=== PATIENT | female | born 1960 | race Two or more races ===

== ENCOUNTER → 2018-03-02 | Outpatient (CLI) | payer BC ==
--- NOTE | 2018-03-02 09:42 | MM ---
Reason for exam: screening (asymptomatic). Baseline mammogram. History: Patient is postmenopausal and is nulliparous. Physical Findings: Nurse did not find any significant physical abnormalities on exam. MG 3D Screening Mammo W/Cad Bilateral CC and MLO view(s) were taken. The breast tissue is heterogeneously dense. This may lower the sensitivity of mammography. There is no discrete abnormality. These results were verbally communicated with the patient and result sheet given to the patient on 03/02/18. ASSESSMENT: Negative, BI-RAD 1 RECOMMENDATION: Routine screening mammogram of both breasts in 1 year.
== END | disposition home or self-care (01) ==
LOC: RADMAMWWP 08:26
PROVIDERS: ATTEND Family Medicine
DX: Z12.31 Encounter for screening mammogram for malignant neoplasm of breast (principal)
CPT/HCPCS: 77063; 77067

== ENCOUNTER → 2019-02-01 | Day surgery (SDC) | payer BC ==
[2019-01-25 11:15] VITALS: BMI 24.7
[~2019-02-01] MED LIST: LACTATED RINGERS 1,000 ML IV SCH; LIDOCAINE 1% 20 ML VIAL (10MG/ML) FOR IV START INTRADERMA PRN; LIDOCAINE 1% INJ 10MG/ML (20 ML MDV) ONE; PROPOFOL 10 MG/ML 20 ML VIAL IV ONE
[2019-02-01 10:13] VITALS: TEMP 97.6
--- NOTE | 2019-02-01 10:26 | P.GSHP ---
History of Present Illness H&P Date: 02/01/19 Chief Complaint: Abdominal pain, screening Patient today for upper and lower endoscopy. Last upper endoscopy 05/31, last colonoscopy 2011. Patient had a polyp that was non-adenomatous. Otherwise doing fairly well. Some upper abdominal pain at times. No dysphagia. No sig nificant heartburn. Past Medical History Past Medical History: GERD/Reflux History of Any Multi-Drug Resistant Organisms: None Reported Additional Past Surgical History / Comment(s): COLONOSCOPY Past Anesthesia/Blood Transfusion Reactions: No Reported Reaction Smoking Status: Never smoker - Past Family History Father Family Medical History: Cancer Medications and Allergies Home Medications Medication Instructions Recorded Confirmed Type Omeprazole [PriLOSEC] 20 mg PO DAILY 01/25/19 02/01/19 History Allergies Allergy/AdvReac Type Severity Reaction Status Date / Time adhesive tape Allergy Rash/Hives Verified 01/25/19 11:15 Surgical - Exam Vital Signs Temp Pulse Resp BP Pulse Ox 97.6 F 77 16 117/74 95 02/01/19 10:11 02/01/19 10:11 02/01/19 10:11 02/01/19 10:11 02/01/19 10:11 Physical exam: General: Well-developed, well-nourished HEENT: Normocephalic, sclerae nonicteric Abdomen: Nontender, nondistended Extremities: No edema Neuro: Alert and oriented Assessment and Plan (1) Colon cancer screening Narrative/Plan: Will proceed with upper and lower endoscopy at this time. Current Visit: Yes Status: Acute Code(s): Z12.11 - ENCOUNTER FOR SCREENING FOR MALIGNANT NEOPLASM OF COLON SNOMED Code(s): 197635555
--- NOTE | 2019-02-01 10:45 | P.PCN ---
Date of Procedure: 02/01/19 Procedure(s) Performed: PREOPERATIVE DIAGNOSIS: Abdominal pain, colon cancer screening POSTOPERATIVE DIAGNOSIS: Minimal gastritis, small rectal polyp PROCEDURE: 1. EGD with biopsy 2. Colonoscopy with biopsy ANESTHESIA: MAC SURGEON: Felipe Moon M.D. SPECIMENS: Antrum, small rectal polyp ENDOSCOPIC PROCEDURE: The patient was on the endoscopy table in the left decubitus position. The Olympus gastroscope was inserted into the oropharynx and passed under direct visualization to the region of the third portion of the duodenum. From that point the scope was slowly withdrawn inspecting all surfaces carefully. There were no neoplastic inflammatory or polypoid lesions throughout the duodenum. The pylorus was widely patent. The stomach was carefully inspected. There was minimal gastritis present. A biopsy of the antrum took place to rule out H. pylori. Retroflexion revealed a normal hiatus. The esophagus was then carefully examined. There were no neoplastic inflammatory or polypoid lesions throughout the visualized esophagus. The patient was kept on the endoscopy table in the left decubitus position. The Olympus colonoscope was inserted into the anus and passed under direct visualization to the base of the cecum. The appendiceal orifice was visualized. From that point the scope was slowly withdrawn inspecting all surfaces carefully. There were no neoplastic inflammatory or polypoid lesions throughout the cecum, ascending, transverse, descending, and sigmoid colon. In the rectum there was noted be a small polyp that was removed using the cold biopsy forceps. The remainder of the rectum appeared normal. There was no visible diverticulosis. s. Digital rectal examination was normal. The patient was taken to the recovery room in stable condition per anesthesia guidelines. RECOMMENDATIONS: Await biopsy results.
[2019-02-01 11:04] VITALS: BP 121/84; PULSE 82; RESP 16
== END | disposition home or self-care (01) ==
LOC: ORWHC2ENDO 09:34
PROVIDERS: ATTEND Surgery
DX: Z12.11 Encounter for screening for malignant neoplasm of colon (principal); K29.50 Unspecified chronic gastritis without bleeding; K21.9 Gastro-esophageal reflux disease without esophagitis; Z86.010 Personal history of colon polyps; Z79.899 Other long term (current) drug therapy; Z88.8 Allergy status to other drugs, medicaments and biological substances; K62.1 Rectal polyp
CPT/HCPCS: 88305; 45380; 43239; J2001; J2704

== ENCOUNTER → 2019-03-10 | Outpatient (CLI) | payer BC ==
--- NOTE | 2019-03-14 07:33 | MM ---
Reason for exam: screening (asymptomatic). Last mammogram was performed 1 year ago. History: Patient is postmenopausal and is nulliparous. Physical Findings: A clinical breast exam by your physician is recommended on an annual basis and results should be correlated with mammographic findings. MG 3D Screening Mammo W/Cad Bilateral CC and MLO view(s) were taken. Prior study comparison: March 02, 2018, bilateral MG 3d screening mammo w/cad. The breast tissue is extremely dense which could obscure a lesion on mammography. No suspicious abnormality. No significant changes when compared with prior studies. ASSESSMENT: Negative, BI-RAD 1 RECOMMENDATION: Routine screening mammogram of both breasts in 1 year.
== END | disposition home or self-care (01) ==
LOC: RADMAMWWP 07:10
PROVIDERS: ATTEND Family Medicine
DX: Z12.31 Encounter for screening mammogram for malignant neoplasm of breast (principal)
CPT/HCPCS: 77063; 77067

== ENCOUNTER → 2021-09-13 | Outpatient (CLI) | payer MEDICAID ==
[2021-09-13 12:13] LABS: Basophils # (A) 0.03 X 10*3/uL (0.00-0.10); Basophils % (A) 0.5 %; Eosinophils # (A) 0.09 X 10*3/uL (0.04-0.35); Eosinophils % (A) 1.5 %; HCT 39.2 % (37.2-46.3); HGB 12.7 g/dL (12.0-15.0); Lymphocytes # (A) 2.16 X 10*3/uL (0.90-5.00); Lymphocytes % (A) 36.3 %; MCH 30.9 pg (27.0-32.0); MCHC 32.4 g/dL (32.0-37.0); MCV 95.4 fL (80.0-97.0); Mean Platelet Volume 9.4 fL (9.5-12.2); Monocytes # (A) 0.48 X 10*3/uL (0.20-1.00); Monocytes % (A) 8.1 %; Neutrophils # (A) 3.18 X 10*3/uL (1.80-7.70); Neutrophils % (A) 53.4 %; Platelet Count 269 X 10*3/uL (140-440); RBC 4.11 X 10*6/uL (4.10-5.20); RDW 12.1 % (11.5-14.5); WBC 5.95 X 10*3/uL (4.50-10.00)
[2021-09-13 13:21] LABS: African American GFR (CKD) 110.7 (60.0-200.0); Albumin 4.2 g/dL (3.8-4.9); Albumin/Globulin Ratio 1.77 (1.60-3.17); Anion Gap 11.9 mmol/L (4.00-12.00); BUN/Creat Ratio 19.68 Ratio (12.00-20.00); Blood Urea Nitrogen 13.5 mg/dL (9.0-27.0); Calcium 9.2 mg/dL (8.7-10.3); Carbon Dioxide 25.2 mmol/L (21.6-31.8); Chol/HDL Ratio 3.11 Ratio; Globulin 2.4 g/dL (1.6-3.3); HDL Cholesterol 60.5 mg/dL (40.00-60.00); Non-African American GFR(CKD) 95.5 (60.0-200.0); T4, Free (Free Thyroxine) 1.24 ng/dL (0.800-1.800); Total Bilirubin 0.4 mg/dL (0.30-1.20); Total Protein 6.6 g/dL (6.2-8.2)
[2021-09-13 13:33] LABS: Triglycerides 48.3 mg/dL (0.00-149.00)
== END | disposition home or self-care (01) ==
LOC: LABWHC1 08:23
PROVIDERS: ATTEND Nurse Practitioner Adult Health
DX: Z00.00 Encounter for general adult medical examination without abnormal findings (principal); G44.209 Tension-type headache, unspecified, not intractable; Z83.49 Family history of other endocrine, nutritional and metabolic diseases; W88.1XXS Exposure to radioactive isotopes, sequela
CPT/HCPCS: 36415; 80053; 80061; 84439; 84443; 85025

== ENCOUNTER 2021-10-02 11:18 | Inpatient (IN) | payer MEDICAID ==
--- NOTE | 2021-10-02 13:16 | ED ---
General Adult HPI - General Chief complaint: Dizziness Stated complaint: High BP/Dizziness Time Seen by Provider: 10/02/21 12:20 Source: patient, family, RN notes reviewed, old records reviewed Mode of arrival: wheelchair Limitations: no limitations - History of Present Illness Initial comments: This a 60-year-old female who presents emergency department stating that she has been dizzy today and when she had her blood pressure taken on the floor she had an elevated blood pressure. She was told to come to the emergency department to be evaluated. Patient states in the recent week she has been having a slightly elevated blood pressure and her primary medical care doctor did not want steroid medication but did want to monitor it. Patient also states had a headache and a little bit of blurred vision. Patient states the headache is ongoing for 1 month. Patient states the lightheadedness is more of an off-balance and it is a near syncopal episode. Patient has chest tightness. Patient denies any difficulty breathing shortness of breath. Patient denies any recent fever chills or cough. Patient denies any abdominal pain patient denies nausea vomiting. - Related Data Home Medications Medication Instructions Recorded Confirmed Aspirin EC [Ecotrin Low Dose] 81 mg PO DAILY PRN 10/02/21 10/02/21 Aspirin/Acetaminophen/Caffeine 1 tab PO Q8H PRN 10/02/21 10/02/21 [Excedrin Migraine Caplet] Allergies Allergy/AdvReac Type Severity Reaction Status Date / Time adhesive tape Allergy Rash/Hives Verified 10/02/21 13:29 Review of Systems ROS Statement: Those systems with pertinent positive or pertinent negative responses have been documented in the HPI. ROS Other: All systems not noted in ROS Statement are negative. Past Medical History Past Medical History: GERD/Reflux History of Any Multi-Drug Resistant Organisms: None Reported Additional Past Surgical History / Comment(s): COLONOSCOPY Past Anesthesia/Blood Transfusion Reactions: No Reported Reaction Past Psychological History: No Psychological Hx Reported Smoking Status: Never smoker Past Alcohol Use History: Occasional Past Drug Use History: None Reported - Past Family History Father Family Medical History: Cancer General Exam - General Exam Comments Initial Comments: GENERAL: Patient is well-developed and well-nourished. Patient is nontoxic and well- hydrated and is in mild distress. ENT: Neck is soft and supple. No significant lymphadenopathy is noted. Oropharynx is clear. Moist mucous membranes. Neck has full range of motion without eliciting any pain. EYES: The sclera were anicteric and conjunctiva were pink and moist. Extraocular movements were intact and pupils were equal round and reactive to light. Eyelids were unremarkable. PULMONARY: Unlabored respirations. Good breath sounds bilaterally. No audible rales rhonchi or wheezing was noted. CARDIOVASCULAR: There is a regular rate and rhythm without any murmurs gallops or rubs. ABDOMEN: Soft and nontender with normal bowel sounds. SKIN: Skin is clear with no lesions or rashes and otherwise unremarkable. NEUROLOGIC: Patient is alert and oriented x3. Cranial nerves II through XII are grossly intact. Motor and sensory are also intact. Normal speech, volume and content. Symmetrical smile. Cerebellar testing finger to nose was normal bilaterally MUSCULOSKELETAL: Normal extremities with adequate strength and full range of motion. LYMPHATICS: No significant lymphadenopathy is noted PSYCHIATRIC: Normal psychiatric evaluation. Limitations: no limitations Course Vital Signs 10/02/21 12:14 Temperature 98.5 F Pulse Rate 94 Respiratory 18 Rate Blood Pressure 190/104 O2 Sat by Pulse 98 Oximetry Medical Decision Making - Medical Decision Making EKG shows normal sinus rhythm at 77 bpm OK interval 158 QRS is 82 QT intervals 42 QTC is 454. Patient's EKG shows no ST segment elevation or depression. Patient's chest x-ray shows no acute abnormality. Patient had an elevated troponin. I started the patient aspirin and Nitropaste and heparin at this time. I spoke with sounds physicians a agreed to admit the patient and the patient consult cardiology. - Lab Data Result diagrams: 10/02/21 13:42 10/02/21 13:42 Lab Results 10/02/21 10/02/21 10/02/21 Range/Units 13:42 13:42 13:42 WBC 8.3 (3.8-10.6) k/uL RBC 4.43 (3.80-5.40) m/uL Hgb 13.8 (11.4-16.0) gm/dL Hct 41.7 (34.0-46.0) % MCV 94.1 (80.0-100.0) fL MCH 31.2 (25.0-35.0) pg MCHC 33.2 (31.0-37.0) g/dL RDW 11.9 (11.5-15.5) % Plt Count 288 (150-450) k/uL MPV 6.8 Neutrophils % 70 % Lymphocytes % 23 % Monocytes % 5 % Eosinophils % 1 % Basophils % 1 % Neutrophils # 5.8 (1.3-7.7) k/uL Lymphocytes # 1.9 (1.0-4.8) k/uL Monocytes # 0.4 (0-1.0) k/uL Eosinophils # 0.1 (0-0.7) k/uL Basophils # 0.0 (0-0.2) k/uL PT 10.4 (9.0-12.0) sec INR 1.0 (<1.2) APTT 24.5 (22.0-30.0) sec Sodium 140 (137-145) mmol/L Potassium 3.7 (3.5-5.1) mmol/L Chloride 106 (98-107) mmol/L Carbon Dioxide 25 (22-30) mmol/L Anion Gap 9 mmol/L BUN 15 (7-17) mg/dL Creatinine 0.61 (0.52-1.04) mg/dL Est GFR (CKD-EPI)AfAm >90 (>60 ml/min/1.73 sqM) Est GFR (CKD-EPI)NonAf >90 (>60 ml/min/1.73 sqM) Glucose 109 H (74-99) mg/dL Calcium 9.9 (8.4-10.2) mg/dL Magnesium 2.1 (1.6-2.3) mg/dL Total Bilirubin 0.5 (0.2-1.3) mg/dL AST 30 (14-36) U/L ALT 23 (4-34) U/L Alkaline Phosphatase 70 (38-126) U/L Troponin I (0.000-0.034) ng/mL Total Protein 7.7 (6.3-8.2) g/dL Albumin 4.4 (3.5-5.0) g/dL 10/02/21 Range/Units 13:42 WBC (3.8-10.6) k/uL RBC (3.80-5.40) m/uL Hgb (11.4-16.0) gm/dL Hct (34.0-46.0) % MCV (80.0-100.0) fL MCH (25.0-35.0) pg MCHC (31.0-37.0) g/dL RDW (11.5-15.5) % Plt Count (150-450) k/uL MPV Neutrophils % % Lymphocytes % % Monocytes % % Eosinophils % % Basophils % % Neutrophils # (1.3-7.7) k/uL Lymphocytes # (1.0-4.8) k/uL Monocytes # (0-1.0) k/uL Eosinophils # (0-0.7) k/uL Basophils # (0-0.2) k/uL PT (9.0-12.0) sec INR (<1.2) APTT (22.0-30.0) sec Sodium (137-145) mmol/L Potassium (3.5-5.1) mmol/L Chloride (98-107) mmol/L Carbon Dioxide (22-30) mmol/L Anion Gap mmol/L BUN (7-17) mg/dL Creatinine (0.52-1.04) mg/dL Est GFR (CKD-EPI)AfAm (>60 ml/min/1.73 sqM) Est GFR (CKD-EPI)NonAf (>60 ml/min/1.73 sqM) Glucose (74-99) mg/dL Calcium (8.4-10.2) mg/dL Magnesium (1.6-2.3) mg/dL Total Bilirubin (0.2-1.3) mg/dL AST (14-36) U/L ALT (4-34) U/L Alkaline Phosphatase (38-126) U/L Troponin I 0.176 H* (0.000-0.034) ng/mL Total Protein (6.3-8.2) g/dL Albumin (3.5-5.0) g/dL Critical Care Time Critical Care Time: Yes Total Critical Care Time: 35 Disposition Clinical Impression: Non-STEMI (non-ST elevated myocardial infarction) Disposition: ADMITTED IP TO THIS [facility] Referrals: Adair Silva MD [Primary Care Provider] - 1-2 days Time of Disposition: 15:07
[2021-10-02] MEDS ORDERED: hydrALAZINE HCL 20 MG/ML 1 ML VIAL IVP STA (13:30)
[2021-10-02 13:54] LABS: Basophils % (A) 1 %; Eosinophils # (A) 0.1 k/uL (0-0.7); Eosinophils % (A) 1 %; HCT 41.7 % (34.0-46.0); HGB 13.8 gm/dL (11.4-16.0); Lymphocytes # (A) 1.9 k/uL (1.0-4.8); Lymphocytes % (A) 23 %; MCH 31.2 pg (25.0-35.0); MCHC 33.2 g/dL (31.0-37.0); MCV 94.1 fL (80.0-100.0); Mean Platelet Volume 6.8; Monocytes # (A) 0.4 k/uL (0-1.0); Monocytes % (A) 5 %; Neutrophils # (A) 5.8 k/uL (1.3-7.7); Neutrophils % (A) 70 %; Platelet Count 288 k/uL (150-450); RBC 4.43 m/uL (3.80-5.40); RDW 11.9 % (11.5-15.5); WBC 8.3 k/uL (3.8-10.6)
[2021-10-02 14:04] LABS: Partial Thromboplastin Time 24.5 sec (22.0-30.0); Prothrombin Time 10.4 sec (9.0-12.0)
[2021-10-02 14:07] LABS: ALT 23 U/L (4-34); AST 30 U/L (14-36); African American GFR (CKD) >90 (>60 ml/min/1.73 sqM); Albumin 4.4 g/dL (3.5-5.0); Alkaline Phosphatase 70 U/L (38-126); Anion Gap 9 mmol/L; Blood Urea Nitrogen 15 mg/dL (7-17); Calcium 9.9 mg/dL (8.4-10.2); Carbon Dioxide 25 mmol/L (22-30); Chloride 106 mmol/L (98-107); Glucose 109 mg/dL (74-99); Magnesium 2.1 mg/dL (1.6-2.3); Non-African American GFR(CKD) >90 (>60 ml/min/1.73 sqM); Potassium 3.7 mmol/L (3.5-5.1); Sodium 140 mmol/L (137-145); Total Bilirubin 0.5 mg/dL (0.2-1.3); Total Protein 7.7 g/dL (6.3-8.2)
--- NOTE | 2021-10-02 14:23 | XR ---
EXAMINATION TYPE: XR chest 2V DATE OF EXAM: 10/02/2021 COMPARISON: NONE TECHNIQUE: PA and lateral views submitted. HISTORY: Chest pain FINDINGS: The lungs are clear and there is no pneumothorax, pleural effusion, or focal pneumonia. Heart size normal. Hyperinflation suggests COPD. No overt failure. Diffuse osteopenia. IMPRESSION: 1. No acute process.
--- NOTE | 2021-10-02 14:32 | CT ---
EXAMINATION TYPE: CT brain wo con DATE OF EXAM: 10/02/2021 COMPARISON: None INDICATION: HTN DLP: 1025.4 mGycm, Automated exposure control for dose reduction was used. CONTRAST: None CT of the brain is performed utilizing 3 mm thick sections through the posterior fossa and 3 mm thick sections through the remaining calvarium. Study is performed within 24 hours of arrival to the hosp [facility]. No abnormal hyperdensity is present to suggest an acute intracranial hemorrhage. No mass lesion is evident. No acute infarcts are evident. Ventricles and sulci are appropriate for the patient age. Paranasal sinuses and mastoid air cells within the [id number]-syoc are clear. IMPRESSIONS: 1. Normal CT Brain
[2021-10-02] MEDS ORDERED: MECLIZINE 12.5 MG TAB PO STA (14:47)
[2021-10-02] MEDS ORDERED: ENALAPRILAT 1.25 MG/ML 1 ML VIAL IVP STA (14:48)
[2021-10-02] MEDS ORDERED: NITROGLYCERIN OINT 1 INCH/GM PACKET TOPICAL STA ×2 (15:05)
[2021-10-02] MEDS ORDERED: ASPIRIN 81 MG PO STA ×2 (15:05)
[2021-10-02] MEDS ORDERED: HEPARIN SODIUM 1,000 UN/ML (10ML VL) IV ONE (15:06)
[2021-10-02] MEDS ORDERED: NITROGLYCERIN SL TABS 0.4 MG TAB SUBLINGUAL PRN (15:09)
[2021-10-02] MEDS ORDERED: HEPARIN SOD,PORK IN 0.45% NACL 25,000 UNIT in 0.45% NACL 1 250ML.BAG IV SCH (15:15)
--- NOTE | 2021-10-02 15:59 | P.HPIM ---
History of Present Illness H&P Date: 10/02/21 Chief Complaint: Dizziness 60-year-old female with past medical history of hypertension admitted to the hospital for dizziness and elevated blood pressure patient did have also some chest pain that currently resolved Review of systems and systems has been reviewed all negative and positive findings as per history of present illness Constitutional: No acute distress, conversant, pleasant Eyes: Anicteric sclerae, moist conjunctiva, no lid-lag PERRLA ENMT: NC/AT Oropharynx clear, no erythema, exudates Neck: Supple, FROM, no masses, or JVD No carotid bruits No thyromegaly Lungs: Clear to auscultation Clear to percussion Normal respiratory effort, no accessory muscle use Cardiovascular: Heart regular in rate and rhythm, No murmurs, gallops, or rubs No peripheral edema Abdominal: Soft Nontender, no guarding, rebound or rigidity Abdomen moving with respiration Normoactive bowel sounds No hepatomegaly, No splenomegaly No palpable mass No abdominal wall hernia noted Skin: Normal temperature, tone, texture, turgor No induration No subcutaneous nodules No rash, lesions No ulcers Extremities: No digital cyanosis No clubbing Pedal pulses intact and symmetrical Radial pulses intact and symmetrical Normal gait and station No calf tenderness Psychiatric:Alert and oriented to person, place and time Appropriate affect Intact judgement Neuro: Muscles Strength 5/5 in all 4 extremities Sensation to light touch grossly present throughout Cranial nerves II-XII grossly intact No focal sensory deficits Assessment and plan Chest pain atypical and typical features with slight elevation in troponins cardiology has been consulted On uncontrolled hypertension Observe Past Medical History Past Medical History: GERD/Reflux History of Any Multi-Drug Resistant Organisms: None Reported Additional Past Surgical History / Comment(s): COLONOSCOPY Past Anesthesia/Blood Transfusion Reactions: No Reported Reaction Past Psychological History: No Psychological Hx Reported Smoking Status: Never smoker Past Alcohol Use History: Occasional Past Drug Use History: None Reported - Past Family History Father Family Medical History: Cancer Medications and Allergies Home Medications Medication Instructions Recorded Confirmed Type Aspirin EC [Ecotrin Low Dose] 81 mg PO DAILY PRN 10/02/21 10/02/21 History Aspirin/Acetaminophen/Caffeine 1 tab PO Q8H PRN 10/02/21 10/02/21 History [Excedrin Migraine Caplet] Allergies Allergy/AdvReac Type Severity Reaction Status Date / Time adhesive tape Allergy Rash/Hives Verified 10/02/21 13:29 Physical Exam Vitals: Vital Signs Temp Pulse Resp BP Pulse Ox 10/02/21 15:38 92 18 176/90 98 10/02/21 12:14 98.5 F 94 18 190/104 98 Intake and Output 10/02/21 10/02/21 10/02/21 06:59 14:59 22:59 Other: Weight 63.049 kg Results CBC & Chem 7: 10/02/21 13:42 10/02/21 13:42 Labs: Abnormal Lab Results - Last 24 Hours (Table) 10/02/21 10/02/21 Range/Units 13:42 13:42 Glucose 109 H (74-99) mg/dL Troponin I 0.176 H* (0.000-0.034) ng/mL
[2021-10-02] MEDS ORDERED: ONDANSETRON 4 MG/2 ML VIAL IVP PRN (16:02)
[2021-10-02] MEDS ORDERED: MAG HYDROX/AL HYDROX/SIMETH 30 ML CUP PO PRN (16:02)
[2021-10-02 17:45] LABS: Creatine Kinase MB 1.7 ng/mL (0.0-2.4)
[2021-10-02] MEDS: ACETAMINOPHEN TAB 325 MG TAB PO PRN (18:15)
[2021-10-02] MEDS: NITROGLYCERIN OINT 1 INCH/GM PACKET TOPICAL SCH (18:16)
[2021-10-02 18:32] LABS: Troponin I 0.164 ng/mL (0.000-0.034)
[2021-10-02] MEDS: METOPROLOL TARTRATE 25 MG TAB PO SCH (21:10)
[2021-10-03] MEDS: NITROGLYCERIN OINT 1 INCH/GM PACKET TOPICAL SCH ×3 (00:50→22:26)
[2021-10-03] MEDS: ACETAMINOPHEN TAB 325 MG TAB PO PRN ×2 (00:50→09:09)
[2021-10-03 07:39] LABS: Basophils % (A) 0 %; Eosinophils % (A) 0 %; HCT 39.2 % (34.0-46.0); Lymphocytes # (A) 2.2 k/uL (1.0-4.8); Lymphocytes % (A) 17 %; MCH 31.3 pg (25.0-35.0); MCHC 33.2 g/dL (31.0-37.0); MCV 94.3 fL (80.0-100.0); Mean Platelet Volume 6.7; Monocytes # (A) 0.5 k/uL (0-1.0); Monocytes % (A) 4 %; Neutrophils # (A) 9.5 k/uL (1.3-7.7); Neutrophils % (A) 77 %; Platelet Count 293 k/uL (150-450); RBC 4.16 m/uL (3.80-5.40); RDW 12.2 % (11.5-15.5); WBC 12.3 k/uL (3.8-10.6)
[2021-10-03 07:52] LABS: ALT 19 U/L (4-34); AST 25 U/L (14-36); African American GFR (CKD) >90 (>60 ml/min/1.73 sqM); Alkaline Phosphatase 61 U/L (38-126); Anion Gap 9 mmol/L; Blood Urea Nitrogen 12 mg/dL (7-17); Calcium 9.5 mg/dL (8.4-10.2); Carbon Dioxide 22 mmol/L (22-30); Chloride 105 mmol/L (98-107); Glucose 113 mg/dL (74-99); Non-African American GFR(CKD) >90 (>60 ml/min/1.73 sqM); Potassium 3.3 mmol/L (3.5-5.1); Sodium 136 mmol/L (137-145); Total Bilirubin 0.8 mg/dL (0.2-1.3); Total Protein 7.1 g/dL (6.3-8.2)
[2021-10-03] MEDS ORDERED: Potassium Replacement Protocol 1 EACH MISC MISCELLANE PRN (07:59)
[2021-10-03] MEDS ORDERED: ASPIRIN 325 MG TAB PO SCH (09:00)
[2021-10-03] MEDS: POTASSIUM CHLORIDE ER 20 MEQ TAB.ER PO SCH ×2 (09:08→10:44)
[2021-10-03] MEDS: METOPROLOL TARTRATE 25 MG TAB PO SCH (09:18)
[2021-10-03] MEDS ORDERED: ALPRAZolam 0.25 MG TAB PO PRN (10:23)
[2021-10-03] MEDS ORDERED: ATORVASTATIN 80 MG TAB PO STA (10:23)
[2021-10-03] MEDS ORDERED: ALPRAZolam 0.5 MG TAB PO PRN (10:23)
[2021-10-03] MEDS ORDERED: SODIUM CHLORIDE 0.9% 1,000 ML in EMPTY BAG 1 BAG IV SCH (10:30)
--- NOTE | 2021-10-03 11:00 | ECHOF ---
Referral Reason:elevated troponin. LV function MEASUREMENTS -------- HEIGHT: 160.0 cm WEIGHT: 62.1 kg BP: RVIDd: 2.2 cm (< 3.3) IVSd: 1.1 cm (0.6 - 1.1) LVIDd: 3.1 cm (3.9 - 5.3) LVPWd: 1.1 cm (0.6 - 1.1) IVSs: 1.7 cm LVIDs: 1.7 cm LVPWs: 1.9 cm LAESV Index (A-L): 15.45 ml/m Ao Diam: 3.1 cm (2.0 - 3.7) AV Cusp: 1.8 cm (1.5 - 2.6) LA Diam: 2.2 cm (2.7 - 3.8) MV EXCURSION: 15.271 mm (> 18.000) MV EF SLOPE: 80 mm/s (70 - 150) EPSS: 0.8 cm MV E Wilian: 0.76 m/s MV DecT: 168 ms MV A Wilian: 0.92 m/s MV E/A Ratio: 0.83 RAP: 5.00 mmHg RVSP: 19.52 mmHg FINDINGS -------- This was a technically good study. The left ventricular size is normal. Left ventricular wall thickness is normal. Overall left vent ricular systolic function is normal with, an EF between 60 - 65 %. The diastolic filling pattern is normal for the age of the patient 9.96. The right ventricle is normal in size. The left atrial size is normal. Normal LA size by volume 22+/-6 ml/m2. The right atrial size is normal. The aortic valve is trileaflet and appears structurally normal. The mitral valve is normal. There is trace mitral regurgitation. The tricuspid valve appears structurally normal. Trace tricuspid regurgitation present. Right cynthia tricular systolic pressure is normal at < 35 mmHg. There is no pulmonic regurgitation present. The aortic root size is normal. Normal inferior vena cava with normal inspiratory collapse consistent with estimated right atrial pre ssure of 5 mmHg. There is no pericardial effusion. CONCLUSIONS -------- 1. The left ventricular size is normal. 2. Left ventricular wall thickness is normal. 3. Overall left ventricular systolic function is normal with, an EF between 60 - 65 %. 4. The diastolic filling pattern is normal for the age of the patient 9.96 5. There is trace mitral regurgitation. 6. Trace tricuspid regurgitation present. 7. There is no pericardial effusion. LINEMAN A CLASS: Lorene French RDCS
--- NOTE | 2021-10-03 11:15 | P.CRDCN ---
History of Present Illness History of present illness: HISTORY OF PRESENTING ILLNESS This is a pleasant 60-year-old female past medical history significant for hypertension. She does not follow with a plane tableman. We have been asked to see in consultation for possible NSTEMI. Patient presents emergency department with complaints of elevated blood pressure. 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 She had an RN check her blood pressure she noted it to be high and she went to the ER for further evaluation. She also endorses occasional chest heaviness. Located in the center of her chest. Non- radiating. She states when she is working she does have chest heaviness at times with activity. She also endorses nausea this morning. She denies shortness of breath, palpitations, syncope, orthopnea, PND, pre-syncope. She denies history of CAD, MD, Stroke, Diabetes, or Dyslipidemia. Family history includes sister has coronary artery disease with multiple stent placements. She denies tobacco use, occasionally drinks red wine. No history of drug use. She states she did follow up with a Dr. Byrne for her BP and had blood work completed, no medications were started for her blood pressure DIAGNOSTICS EKG reveals sinus rhythm, heart rate 77, no significant ST ST-T wave abnormalities. Telemetry tracings indicate sinus mechanism Chest xray no acute cardiopulmonary process Brain CT revealed no acute intracranial hemorrhage/mass/acute infarcts. Laboratory reviewed, troponin 0.17, 0.16, 0.20, CBC unremarkable, d-dimer negative, sodium 140, potassium 3.7, BUN 15, serum creatinine 0.6, magnesium 2.1, liver enzymes within normal limits Current home medications include aspirin 81 mg daily REVIEW OF SYSTEMS At the time of my exam: CONSTITUTIONAL: Denies fever or chills. CARDIOVASCULAR: + chest pain, Denies shortness of breath, orthopnea, PND or palpitations. RESPIRATORY: Denies cough. GASTROINTESTINAL:+nausea Denies abdominal pain, diarrhea, constipation, vomiting. MUSCULOSKELETAL: Denies myalgias. NEUROLOGIC: +dizziness +headache Denies numbness, tingling, weakness. ENDOCRINE: Denies fatigue, weight change, polydipsia or polyurina. GENITOURINARY: Denies burning, hematuria or urgency with micturation. HEMATOLOGIC: Denies history of anemia or bleeding. PHYSICAL EXAMINATION Blood pressure 129/75, Cardizem 2, afebrile oxygen saturations greater than 92% on room air CONSTITUTIONAL: No apparent distress. HEENT: Head is normocephalic. Pupils are equal, round. Sclerae anicteric. Mucous membranes of the mouth are moist. No JVD. No carotid bruit. CHEST EXAMINATION: Lungs are clear to auscultation. No chest wall tenderness is noted on palpation or with deep breathing. HEART EXAMINATION: Regular rate and rhythm. S1, S2 heard. No murmurs, gallops or rub. ABDOMEN: Soft, nontender. Positive bowel sounds. EXTREMITIES: 2+ peripheral pulses, no lower extremity edema and no calf tenderness. SKIN: warm dry NEUROLOGIC EXAMINATION: Patient is awake, alert and oriented x3. ASSESSMENT NSTEMI Hypertension Dizziness, headache PLAN Obtain 2D echocardiogram and doppler study to assess cardiac structure and funct ion. Lipid panel pending Start losartan 25mg daily Continue aspirin and metoprolol tartrate We recommend cardiac catheterization at this time, patient is in agreement to the procedure I have discussed the risks, benefits and alternative therapies for the above- mentioned procedure and for both sedation/analgesia as well as necessary blood product administration, if indicated, as they pertain to this patient. The patient has indicated understanding and acceptance of the risks and procedures d iscussed. Questions have been answered appropriately and she is agreeable to move forward with the above-stated procedure. Further recommendations based on clinical course Thank you kindly for this consultation. Nurse Practitioner note has been reviewed, I agree with a documented findings and plan of care. Patient was seen and examined. Past Medical History Past Medical History: GERD/Reflux, Hypertension History of Any Multi-Drug Resistant Organisms: None Reported Past Surgical History: Appendectomy Additional Past Surgical History / Comment(s): COLONOSCOPY ovaries removed Past Anesthesia/Blood Transfusion Reactions: No Reported Reaction Past Psychological History: No Psychological Hx Reported Smoking Status: Never smoker Past Alcohol Use History: Occasional Past Drug Use History: None Reported - Past Family History Father Family Medical History: Cancer Medications and Allergies Home Medications Medication Instructions Recorded Confirmed Type Aspirin EC [Ecotrin Low Dose] 81 mg PO DAILY PRN 10/02/21 10/02/21 History Aspirin/Acetaminophen/Caffeine 1 tab PO Q8H PRN 10/02/21 10/02/21 History [Excedrin Migraine Caplet] Allergies Allergy/AdvReac Type Severity Reaction Status Date / Time adhesive tape Allergy Rash/Hives Verified 10/02/21 13:29 Physical Exam Vitals: Vital Signs Temp Pulse Pulse Resp BP BP Pulse Ox 10/03/21 04:00 98.1 F 92 16 129/75 97 10/03/21 00:00 97.9 F 88 16 122/74 98 10/02/21 20:00 98.0 F 103 H 16 116/64 97 10/02/21 17:59 117 H 16 165/77 98 10/02/21 15:38 92 18 176/90 98 10/02/21 12:14 98.5 F 94 18 190/104 98 Intake and Output 10/02/21 10/02/21 10/03/21 14:59 22:59 06:59 Intake Total 68.094 Balance 68.094 Intake: Intake, IV Titration 68.094 Amount Heparin Sod,Pork in 0.45% 68.094 NaCl 25,000 unit In 0.45 % NaCl 1 250ml.bag @ 12 UNITS/KG/HR 7.566 mls/hr IV .Q24H [facility] Rx#: [id number] Other: Voiding Method Toilet Toilet # Voids 1 Weight 63.049 kg 63.049 kg 62.2 kg Results 10/03/21 07:12 10/03/21 07:12 Cardiac Enzymes 10/02/21 10/02/21 10/02/21 Range/Units 13:42 13:42 16:44 AST 30 (14-36) U/L CK-MB (CK-2) 1.7 (0.0-2.4) ng/mL Troponin I 0.176 H* 0.164 H* (0.000-0.034) ng/mL 10/02/21 Range/Units 19:28 AST (14-36) U/L CK-MB (CK-2) (0.0-2.4) ng/mL Troponin I 0.207 H* (0.000-0.034) ng/mL Coagulation 10/02/21 10/02/21 Range/Units 13:42 21:55 PT 10.4 (9.0-12.0) sec APTT 24.5 48.0 H (22.0-30.0) sec CBC 10/02/21 Range/Units 13:42 WBC 8.3 (3.8-10.6) k/uL RBC 4.43 (3.80-5.40) m/uL Hgb 13.8 (11.4-16.0) gm/dL Hct 41.7 (34.0-46.0) % Plt Count 288 (150-450) k/uL Comprehensive Metabolic Panel 10/02/21 Range/Units 13:42 Sodium 140 (137-145) mmol/L Potassium 3.7 (3.5-5.1) mmol/L Chloride 106 (98-107) mmol/L Carbon Dioxide 25 (22-30) mmol/L BUN 15 (7-17) mg/dL Creatinine 0.61 (0.52-1.04) mg/dL Glucose 109 H (74-99) mg/dL Calcium 9.9 (8.4-10.2) mg/dL AST 30 (14-36) U/L ALT 23 (4-34) U/L Alkaline Phosphatase 70 (38-126) U/L Total Protein 7.7 (6.3-8.2) g/dL Albumin 4.4 (3.5-5.0) g/dL Current Medications Generic Name Dose Route Start Last Admin Trade Name Freq PRN Reason Stop Dose Admin Acetaminophen 650 mg 10/02/21 16:02 10/03/21 00:50 Acetaminophen Tab 325 Mg Tab PO 650 mg Q6HR PRN Administration Mild Pain or Fever > 100.5 Al Hydroxide/Mg Hydroxide 15 ml 10/02/21 16:02 Mag Hydrox/Al Hydrox/Simeth 30 Ml Cup PO Q6HR PRN Indigestion Aspirin 325 mg 10/03/21 09:00 Aspirin 325 Mg Tab PO DAILY ANDRY Heparin Sodium/Sodium Chloride 250 mls @ 7.566 mls/hr 10/02/21 15:15 10/03/21 01:18 25,000 unit/ Sodium Chloride IV 12 units/kg/hr .Q24H ANDRY 7.566 mls/hr Titration Protocol 12 UNITS/KG/HR Metoprolol Tartrate 25 mg 10/02/21 21:00 10/02/21 21:10 Metoprolol Tartrate 25 Mg Tab PO 25 mg BID ANDRY Administration Nitroglycerin 0.4 mg 10/02/21 15:09 Nitroglycerin Sl Tabs 0.4 Mg Tab SUBLINGUAL Q5M PRN Chest Pain Nitroglycerin 1 inch 10/02/21 18:00 10/03/21 00:50 Nitroglycerin Oint 1 Inch/Gm Packet TOPICAL 1 inch Q6HR ANDRY Administration Ondansetron HCl 4 mg 10/02/21 16:02 Ondansetron 4 Mg/2 Ml Vial IVP Q8HR PRN Nausea And Vomiting Intake and Output 10/02/21 10/02/21 10/03/21 14:59 22:59 06:59 Intake Total 68.094 Balance 68.094 Intake: Intake, IV Titration 68.094 Amount Heparin Sod,Pork in 0.45% 68.094 NaCl 25,000 unit In 0.45 % NaCl 1 250ml.bag @ 12 UNITS/KG/HR 7.566 mls/hr IV .Q24H [facility] Rx#: [id number] Other: Voiding Method Toilet Toilet # Voids 1 Weight 63.049 kg 63.049 kg 62.2 kg Patient Weight 10/03/21 06:59 Weight 62.2 kg 10/02/21 13:42 10/02/21 13:42
[2021-10-03] MEDS ORDERED: IV FLUID CONTINUATION 800 ML IV ONE (11:28)
[2021-10-03] MEDS ORDERED: MIDAZOLAM 2 MG/2 ML VIAL IV ONE (11:28)
[2021-10-03] MEDS ORDERED: LIDOCAINE 1% INJ 10MG/ML (20 ML MDV) SQ ONE (11:28)
[2021-10-03] MEDS ORDERED: VERAPAMIL SYRINGE (5 MG/10 ML) INTRAARTER ONE (11:31)
[2021-10-03 11:42] LABS: Chol/HDL Ratio 2.86 Ratio; LDL Cholesterol,Calculated 112.8 mg/dL (0.0-131.0); VLDL Calculation 9.48 mg/dL (5.00-40.00)
[2021-10-03] MEDS ORDERED: IOPAMIDOL-370 100ML BTL INJ ONE (11:43)
--- NOTE | 2021-10-03 12:22 | P.PN ---
Subjective Progress Note Date: 10/03/21 Principal diagnosis: Patient feels okay still have some chest discomfort 60-year-old female with past medical history of hypertension admitted to the hospital for dizziness and elevated blood pressure patient did have also some chest pain that currently resolved Review of systems and systems has been reviewed all negative and positive findings as per history of present illness Constitutional: No acute distress, conversant, pleasant Eyes: Anicteric sclerae, moist conjunctiva, no lid-lag PERRLA ENMT: NC/AT Oropharynx clear, no erythema, exudates Neck: Supple, FROM, no masses, or JVD No carotid bruits No thyromegaly Lungs: Clear to auscultation Clear to percussion Normal respiratory effort, no accessory muscle use Cardiovascular: Heart regular in rate and rhythm, No murmurs, gallops, or rubs No peripheral edema Abdominal: Soft Nontender, no guarding, rebound or rigidity Abdomen moving with respiration Normoactive bowel sounds No hepatomegaly, No splenomegaly No palpabl e mass No abdominal wall hernia noted Skin: Normal temperature, tone, texture, turgor No induration No subcutaneous nodules No rash, lesions No ulcers Extremities: No digital cyanosis No clubbing Pedal pulses intact and symmetrical Radial pulses intact and symmetrical Normal gait and station No calf tenderness Psychiatric:Alert and oriented to person, place and time Appropriate affect Intact judgement Neuro: Muscles Strength 5/5 in all 4 extremities Sensation to light touch grossly present throughout Cranial nerves II-XII grossly intact No focal sensory deficits Assessment and plan Chest pain atypical and typical features with slight elevation in troponins cardiology has been consulted On uncontrolled hypertension For possible cardiac cath today Objective - Vital Signs Vital signs: Vital Signs Temp 98.6 F 10/03/21 09:05 Pulse 89 10/03/21 09:05 Resp 18 10/03/21 09:05 BP 141/69 10/03/21 09:05 Pulse Ox 97 10/03/21 09:05 Intake & Output 10/02/21 10/03/21 10/03/21 18:59 06:59 18:59 Intake Total 68.094 359.141 Balance 68.094 359.141 Weight 63.049 kg 62.2 kg Intake: IV 300 Intake, IV Titration 68.094 59.141 Amount Heparin Sod,Pork in 0.45% 68.094 59.141 NaCl 25,000 unit In 0.45 % NaCl 1 250ml.bag @ 12 UNITS/KG/HR 7.566 mls/hr IV .Q24H [facility] Rx#: [id number] Other: Voiding Method Toilet Toilet # Voids 1 2 - Labs CBC & Chem 7: 10/03/21 07:12 10/03/21 07:12 Labs: Abnormal Lab Results - Last 24 Hours (Table) 10/02/21 10/02/21 10/02/21 Range/Units 13:42 13:42 16:44 WBC (3.8-10.6) k/uL Neutrophils # (1.3-7.7) k/uL APTT (22.0-30.0) sec Sodium (137-145) mmol/L Potassium (3.5-5.1) mmol/L Glucose 109 H (74-99) mg/dL Troponin I 0.176 H* 0.164 H* (0.000-0.034) ng/mL HDL Cholesterol (40.00-60.00) mg/dL 10/02/21 10/02/21 10/03/21 Range/Units 19:28 21:55 07:12 WBC (3.8-10.6) k/uL Neutrophils # (1.3-7.7) k/uL APTT 48.0 H (22.0-30.0) sec Sodium 136 L (137-145) mmol/L Potassium 3.3 L (3.5-5.1) mmol/L Glucose 113 H (74-99) mg/dL Troponin I 0.207 H* (0.000-0.034) ng/mL HDL Cholesterol 65.70 H (40.00-60.00) mg/dL 10/03/21 10/03/21 10/03/21 Range/Units 07:12 07:12 08:19 WBC 12.3 H (3.8-10.6) k/uL Neutrophils # 9.5 H (1.3-7.7) k/uL APTT 41.6 H (22.0-30.0) sec Sodium (137-145) mmol/L Potassium (3.5-5.1) mmol/L Glucose (74-99) mg/dL Troponin I 0.182 H* (0.000-0.034) ng/mL HDL Cholesterol (40.00-60.00) mg/dL
--- NOTE | 2021-10-03 12:40 | CC ---
CARDIAC CATHETERIZATION REPORT DATE OF SERVICE: 10/03/2021 PROCEDURE: Left heart catheterization, coronary angiography. PERFORMED BY: Dr. Sean Martinez. Moderate conscious sedation time was 20 minutes. Patient was administered Versed. Oxygen saturation, hemodynamics and EKG were monitored closely. CLINICAL INFORMATION: Mrs. 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 She was at work when she noted that she had an uncomfortable feeling in the chest and a fluttery feeling and then blood pressure was elevated. She was hospitalized and serial troponins suggested a mild up and down pattern, raising the possibility of [id number]. I therefore advised cardiac catheterization after due discussion regarding risks, benefits and options. She was on a heparin drip and also beta blockers. Risks, benefits, options and rationale were explained. Patient wished to proceed with the procedure. PROCEDURE NOTE: Under local anesthesia and strict aseptic precautions, a 6-Nepali introducer was placed in the right radial artery. Using a JL3.5 and JR4 catheters I performed coronary angiography, and the same right catheter was used to check LV pressure, but LV gram was not performed. The sheath was taken out and TR band applied as per protocol with saturation in the fingers of the right hand of 96%. Patient was sent to the room in a stable condition. CARDIAC CATHETERIZATION FINDINGS: The left ventricular end-diastolic pressure was 13 mmHg without any gradient across aortic valve. CORONARY ANGIOGRAPHY FINDINGS: RIGHT CORONARY ARTERY: Large dominant vessel. No significant disease. Bifurcates into a large PDA and PLV, both of which have minor irregularities. No significant disease. LEFT MAIN CORONARY ARTERY: A very short vessel. No significant disease. Bifurcates immediately into LAD and circumflex. LAD in the proximal portion has smooth narrowing, then caliber improves. It runs all the way to the apex, supplies a sizable amount of myocardium. No significant disease in the entire LAD system. It gives off a good- sized diagonal branch in the mid portion. LAD therefore proximally has a smooth narrowing, but the caliber then improves and it has no other significant disease. Septal and diagonal branches are free of significant disease. LEFT POSTERIOR CIRCUMFLEX CORONARY ARTERY: Nondominant vessel gives off a large obtuse marginal that runs laterally, trifurcates into 3 branches, has no significant disease. Continuation of circumflex in the AV groove is also free of significant disease and gives off distal posterolateral branch and a left atrial circumflex branch. FINAL IMPRESSION: This patient has normal filling pressures. No gradient. Right-dominant system. Minor irregularities. No significant disease. Proximal LAD has a smooth narrowing. The stenosis is no more than 30%. Overall no significant CAD. Normal filling pressures. RECOMMENDATIONS: Findings were discussed with the patient. Her family was not available. We will continue to treat her with beta blockers, aspirin, statins, and also a small dose of losartan to optimize her blood pressure control. She will be discharged tomorrow. MMODL / IJN: [id number] /
--- NOTE | 2021-10-03 15:32 | US ---
EXAMINATION TYPE: US thyroid st tissue head/neck DATE OF EXAM: 10/03/2021 COMPARISON: NONE CLINICAL HISTORY: ro thyroid nodule . Unexplained HTN. Previous nuclear exposure. GLAND SIZE: Right Lobe: 4.6 x 2.0 x 1.3 cm Overall Parenchyma: homogenous Left Lobe: 3.8 x 1.2 x 1.1 cm Overall Parenchyma: homogeneous Isthmus Thickness: 0.2 cm NODULES RIGHT: # of nodules measured on right: 0 LEFT: # of nodules measured on left: 0 ISTHMUS: # of nodules measured in the isthmus: 0 Bilateral neck scanned, no evidence of lymphadenopathy. IMPRESSION: No evident thyroid mass 2017 ACR TI-RADS LEVEL: *Highest TI-RADS level nodule reported
[2021-10-03] MEDS: SODIUM CHLORIDE 0.9% 1,000 ML IV SCH (16:59)
[2021-10-03] MEDS: LOSARTAN 50 MG TAB PO SCH (20:40)
[2021-10-03] MEDS: METOPROLOL TARTRATE 12.5 MG TAB PO SCH (20:40)
[2021-10-04 01:55] VITALS: RESP 18
[2021-10-04] MEDS: SODIUM CHLORIDE 0.9% 1,000 ML IV SCH ×2 (05:22→08:13)
[2021-10-04] MEDS ORDERED: HEPARIN SODIUM,PORCINE 10,000 UNIT in SODIUM CHLORIDE 0.9% 1,000 ML IRRIGATION PRN (07:00)
[2021-10-04] MEDS ORDERED: HEPARIN SODIUM,PORCINE 2,500 UNIT in SODIUM CHLORIDE 0.9% 250 ML IRRIGATION PRN (07:00)
[2021-10-04 08:32] VITALS: BP 124/74; PULSE 86; TEMP 98
[2021-10-04] MEDS: METOPROLOL TARTRATE 12.5 MG TAB PO SCH (08:32)
[2021-10-04] MEDS: LOSARTAN 50 MG TAB PO SCH (08:32)
[2021-10-04] MEDS ORDERED: ASPIRIN 81 MG PO SCH (09:00)
[2021-10-04 09:28] LABS: Basophils % (A) 0 %; Eosinophils # (A) 0.1 k/uL (0-0.7); Eosinophils % (A) 1 %; HCT 41.9 % (34.0-46.0); Lymphocytes # (A) 1.6 k/uL (1.0-4.8); Lymphocytes % (A) 23 %; MCH 31.6 pg (25.0-35.0); MCHC 33.4 g/dL (31.0-37.0); MCV 94.6 fL (80.0-100.0); Mean Platelet Volume 6.6; Monocytes # (A) 0.4 k/uL (0-1.0); Monocytes % (A) 5 %; Neutrophils # (A) 4.8 k/uL (1.3-7.7); Neutrophils % (A) 69 %; Platelet Count 282 k/uL (150-450); RBC 4.43 m/uL (3.80-5.40); RDW 12.1 % (11.5-15.5)
[2021-10-04 09:56] LABS: ALT 19 U/L (4-34); AST 24 U/L (14-36); African American GFR (CKD) >90 (>60 ml/min/1.73 sqM); Alkaline Phosphatase 49 U/L (38-126); Anion Gap 9 mmol/L; Blood Urea Nitrogen 10 mg/dL (7-17); Calcium 9.4 mg/dL (8.4-10.2); Carbon Dioxide 23 mmol/L (22-30); Chloride 106 mmol/L (98-107); Glucose 159 mg/dL (74-99); Non-African American GFR(CKD) >90 (>60 ml/min/1.73 sqM); Potassium 4.1 mmol/L (3.5-5.1); Sodium 138 mmol/L (137-145); Total Bilirubin 0.6 mg/dL (0.2-1.3)
--- NOTE | 2021-10-04 11:59 | P.PN ---
Subjective HISTORY OF PRESENTING ILLNESS This is a pleasant 60-year-old female past medical history significant for hypertension. She does not follow with a it service technician. We have been asked to see in consultation for possible NSTEMI. Patient presents emergency department with complaints of elevated blood pressure. 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 She had an RN check her blood pressure she noted it to be high and she went to the ER for further evaluation. She also endorses occasional chest heaviness. Located in the center of her chest. Non- radiating. She states when she is working she does have chest heaviness at times with activity. She also endorses nausea this morning. She denies shortness of breath, palpitations, syncope, orthopnea, PND, pre-syncope. She denies history of CAD, [place], Stroke, Diabetes, or Dyslipidemia. Family history includes sister has coronary artery disease with multiple stent placements. She denies tobacco use, occasionally drinks red wine. No history of drug use. She states she did follow up with a Dr. Byrne for her BP and had blood work completed, no medications were started for her blood pressure 10/04/2021 Patient underwent cardiac catheterization revealing normal filling pressures, no gradient across the valve with minor irregularities and no significant obstructive disease no more than 30% stenosis noted in the proximal LAD. Blood pressure today 124/74 heart rate 86 afebrile maintaining oxygen saturation on room air. Laboratory data reviewed, CBC unremarkable, sodium 138, potassium 4.1 and creatinine 0.64. Currently maintained on aspirin 81 mg daily, losartan 50 mg daily metoprolol 12.5 mg twice a day. Echocardiogram obtained reveals preserved LV systolic function with ejection fraction 60-65%. PHYSICAL EXAMINATION CONSTITUTIONAL: No apparent distress. HEENT: Head is normocephalic. Pupils are equal, round. Sclerae anicteric. Mucous membranes of the mouth are moist. No JVD. No carotid bruit. CHEST EXAMINATION: Lungs are clear to auscultation. No chest wall tenderness is noted on palpation or with deep breathing. HEART EXAMINATION: Regular rate and rhythm. S1, S2 heard. No murmurs, gallops or rub. EXTREMITIES: 2+ peripheral pulses, no lower extremity edema and no calf tenderness. Right radial access site soft, nontender with no evidence of hematoma or ecchymosis. ASSESSMENT NSTEMI Hypertension Dizziness, headache PLAN Stable for discharge. Follow up next week with Dr Martinez. Nurse Practitioner note has been reviewed, I agree with a documented findings and plan of care. Patient was seen and examined. Objective - Vital Signs Vital signs: Vital Signs Temp 98 F 10/04/21 08:00 Pulse 86 10/04/21 08:00 Resp 18 10/04/21 08:00 BP 124/74 10/04/21 08:00 Pulse Ox 98 10/04/21 08:40 Intake & Output 10/03/21 10/04/21 10/04/21 18:59 06:59 18:59 Intake Total 595.141 20 180 Balance 595.141 20 180 Weight 61.2 kg Intake: IV 300 20 Invasive Line 1 20 Intake, IV Titration 59.141 Amount Heparin Sod,Pork in 0.45% 59.141 NaCl 25,000 unit In 0.45 % NaCl 1 250ml.bag @ 12 UNITS/KG/HR 7.566 mls/hr IV .Q24H [facility] Rx#: [id number] Oral 236 180 Other: Voiding Method Toilet Toilet # Voids 1 1 - Labs CBC & Chem 7: 10/04/21 08:17 10/04/21 08:17 Labs: Abnormal Lab Results - Last 24 Hours (Table) 10/03/21 10/04/21 Range/Units 07:12 08:17 Glucose 159 H (74-99) mg/dL HDL Cholesterol 65.70 H (40.00-60.00) mg/dL
--- NOTE | 2021-10-04 12:56 | P.DS ---
Providers Date of admission: 10/02/21 15:14 Expected date of discharge: 10/04/21 Attending physician: Faith Lainez Consults: 10/02/21 15:09 Consult Physician Urgent Consulting Provider: [facility] Consult Reason/Comments: Non-STEMI Do you want consulting provider notified?: Yes Primary care physician: Adair Silva MD Hospital Course: Discharge Diagnosis: NSTEMI Hypertensive urgency Dizziness/lightheadedness and headache likely resulting from hypertensive urgency Hypokalemia, resolved Hospital Course: Patient is a very pleasant 60-year-old female with a past medical history of hypertension. She presented to the hospital on 10/02/21 with a chief complaint of dizziness/lightheadedness and headache and was found to have significant hypertension with blood pressure of 190/104. A CT head was completed and negative for acute intracranial process. Chest x-ray negative for acute cardiopulmonary process showing signs of hyperinflation suggestive of COPD. EKG showing normal sinus rhythm at 77 bpm with no noted T-wave or ST abnormalities. Troponins elevated at 0.176, 0.164, 0.207, and 0.182. Labs otherwise showing no significant abnormalities. Echocardiogram completed showing normal EF between 60 and 65% with no significant valvular abnormalities. Patient underwent cardiac catheterization completed revealing patient overall with no significant CAD, reporting proximal LAD with smooth narrowing with stenosis no more than 30%. Cardiology recommending continuation of aspirin, statin, and beta jeremiah and a small dose of losartan was also added to optimize blood pressure control. Lipid profile unremarkable. Ultrasound thyroid tissue of the neck completed due to unexplained hypertension and this was unremarkable with no evidence of lymphadenopathy. Acute coronary process ruled out at this time. Patient stable for discharge home. Cardiology recommending follow-up with their office in one week. Physical examination: Patient seen and examined at bedside. She reports feeling great this morning and remains free from any headache, lightheadedness, dizziness, chest pain, palpitations, shortness of breath, dyspnea with exertion, nausea, or experiencing any numbness/tingling/weakness in her extremities. Morning labs reviewed and were unremarkable. Vital signs stable with morning blood pressure 124/74 and heart rate of 86. Vital signs reviewed and stable. General: Nontoxic, no distress and appears stated age. Derm: Skin warm and dry, normal coloration for ethnicity.Cardiac cath insertion site right wrist showing no signs of hematoma, erythema, bleeding, or drainage. Head: Atraumatic, normocephalic and symmetric. Eyes: EOMs intact, no lid lag, and anicteric sclera Mouth: no lip lesions, mucus membranes moist Cardiovascular: regular rate and rhythm with normal S1S2, no murmur, positive posterior tibial pulses bilaterally, and cap refill < 2 seconds. Lungs: Respirations even, regular, and unlabored on room air. Lungs CTA bilaterally, no rhonchi, no rales, no wheezing, and no accessory muscle usage. Abdominal: soft, nontender to palpation, no guarding, no appreciable organomegaly Ext: ROM intact. No gross muscle atrophy, no edema, no contractures Neuro: Speech clear, face symmetrical and CN II-XII grossly intact with no noted focal neuro deficits Psych: Alert and oriented to person, place, time, and situation. Appropriate and pleasant affect. A total of 45 minutes of time were spent preparing this complex discharge summary. Patient Condition at Discharge: Stable Plan - Discharge Summary Discharge Rx Participant: No New Discharge Prescriptions: New Atorvastatin [Lipitor] 40 mg PO HS 30 Days #30 tablet Losartan [Cozaar] 50 mg PO DAILY 30 Days #30 tab Metoprolol Tartrate [Lopressor] 12.5 mg PO BID 30 Days #60 tab Continue Aspirin/Acetaminophen/Caffeine [Excedrin Migraine Caplet] 1 tab PO Q8H PRN PRN Reason: Migraine Headache Aspirin EC [Ecotrin Low Dose] 81 mg PO DAILY PRN PRN Reason: Pain Discharge Medication List Aspirin EC [Ecotrin Low Dose] 81 mg PO DAILY PRN 10/02/21 [History] Aspirin/Acetaminophen/Caffeine [Excedrin Migraine Caplet] 1 tab PO Q8H PRN 10/02/21 [History] Atorvastatin [Lipitor] 40 mg PO HS 30 Days #30 tablet 10/04/21 [Rx] Losartan [Cozaar] 50 mg PO DAILY 30 Days #30 tab 10/04/21 [Rx] Metoprolol Tartrate [Lopressor] 12.5 mg PO BID 30 Days #60 tab 10/04/21 [Rx] Follow up Appointment(s)/Referral(s): Laly Martinez MD [STAFF PHYSICIAN] - 10/08/21 9:00 am Adair Silva MD [Primary Care Provider] - 1-2 days (Office closed - please call to make an appointment) Patient Instructions/Handouts: Hypertension (DC) Activity/Diet/Wound Care/Special Instructions: Activity: As tolerated. Take breaks as needed. Diet: Heart healthy and carb consistent diet. Avoid salts, or foods with hidden salts such as canned or boxed foods and frozen dinners. Extra salt makes your heart work harder and traps the fluid in your body for longer. Special Instructions: Take all of your medications as directed and remember to keep all of your doctor's appointments and follow-up as needed. Thank you for allowing us to participate in your care, it was truly a pleasure having you for our patient!!! Discharge Disposition: HOME SELF-CARE
== END 2021-10-04 11:44 | disposition home or self-care (01) | DRG 282 ==
LOC: EC 11:18 → 3SCARD 15:14
PROVIDERS: ADMIT Internal Medicine; ATTEND Internal Medicine
PROC: B2111ZZ Fluoroscopy of Multiple Coronary Arteries using Low Osmolar Contrast (ICD-10-PCS; 2021-10-03)
PROC: 4A023N7 Measurement of Cardiac Sampling and Pressure, Left Heart, Percutaneous Approach (ICD-10-PCS; principal; 2021-10-03 13:00)
DX: I21.4 Non-ST elevation (NSTEMI) myocardial infarction (principal); E87.6 Hypokalemia; I10 Essential (primary) hypertension; I16.0 Hypertensive urgency; Z20.822 Contact with and (suspected) exposure to COVID-19; R07.89 Other chest pain; R51.9 Headache, unspecified; K21.9 Gastro-esophageal reflux disease without esophagitis; Z79.82 Long term (current) use of aspirin; Z79.899 Other long term (current) drug therapy; Z91.041 Radiographic dye allergy status; Z82.49 Family history of ischemic heart disease and other diseases of the circulatory system
CPT/HCPCS: 36415; 70450; 71046; 76536; 80053; 80061; 82550; 82553; 83721; 83735; 84484; 85025; 85379; 85610; 85730; 87635; 93005; 93306; 93458; 94760; 96374; 99291

== ENCOUNTER → 2021-12-08 | Outpatient (CLI) | payer MEDICAID ==
--- NOTE | 2021-12-09 10:03 | MM ---
Reason for exam: screening (asymptomatic). Last mammogram was performed 2 years and 9 months ago. History: Patient is postmenopausal and is nulliparous. Physical Findings: A clinical breast exam by your physician is recommended on an annual basis and results should be correlated with mammographic findings. MG 3D Screening Mammo W/Cad Bilateral CC and MLO view(s) were taken. Prior study comparison: March 10, 2019, bilateral MG 3d screening mammo w/cad. March 02, 2018, bilateral MG 3d screening mammo w/cad. The breast tissue is heterogeneously dense. This may lower the sensitivity of mammography. There is no discrete abnormality. No significant changes when compared with prior studies. ASSESSMENT: Negative, BI-RAD 1 RECOMMENDATION: Routine screening mammogram of both breasts in 1 year.
== END | disposition home or self-care (01) ==
LOC: RADMAMWWP 15:33
PROVIDERS: ATTEND Internal Medicine
DX: Z12.31 Encounter for screening mammogram for malignant neoplasm of breast (principal); Z78.0 Asymptomatic menopausal state
CPT/HCPCS: 77063; 77067

== ENCOUNTER → 2022-02-04 | Outpatient (CLI) | payer MEDICAID | END | disposition home or self-care (01) | LOC: LABWHC1 09:50 | PROVIDERS: ATTEND Internal Medicine Interventional Cardiology | DX: I10 Essential (primary) hypertension (principal); E27.9 Disorder of adrenal gland, unspecified | CPT/HCPCS: 36415; 82533 ==

== ENCOUNTER → 2022-02-13 | Outpatient (CLI) | payer MEDICAID ==
--- NOTE | 2022-02-13 21:12 | CT ---
EXAMINATION TYPE: CT angio abdomen DATE OF EXAM: 02/13/2022 5:32 PM COMPARISON: None. HISTORY: HIGH BP/ RENAL ARTERY STENOSIS CT DLP: 358.4 mGycm Automated exposure control for dose reduction was used. TECHNIQUE: Performed with IV Contrast, patient injected with 100ML mL of Isovue 300. 3D reconstructed images are created on an independent workstation and reviewed.. FINDINGS: Kidneys: No renal calculus appreciated on noncontrast images. Kidneys are symmetric and normal in siz e. No concerning solid or cystic renal mass or hydronephrosis is present bilaterally. There are acces contreras small caliber arteries to the bilateral lower poles. Dominant renal arteries show no significant plaque or stenosis. Others: Lung bases are grossly clear. Liver, gallbladder, spleen , pancreas, and both adrenal glands appear within normal limits. No suspicious small or large bowel dilatation. Stomach poorly distended and thus suboptimally evaluated. Patent celiac artery, SMA, and APRIL. No AAA. IMPRESSION: Unremarkable study. No suspicious focal renal artery stenosis.
== END | disposition home or self-care (01) ==
LOC: RADCTMAIN 16:22
PROVIDERS: ATTEND Internal Medicine Interventional Cardiology
DX: I70.1 Atherosclerosis of renal artery (principal)
CPT/HCPCS: 74175; Q9967

== ENCOUNTER → 2022-03-17 | Outpatient (CLI) | payer MEDICAID ==
[2022-03-17 19:15] LABS: African American GFR (CKD) 111.2 (60.0-200.0); Albumin 4.8 g/dL (3.8-4.9); Albumin/Globulin Ratio 1.72 (1.60-3.17); Anion Gap 13.1 mmol/L (10.00-18.00); BUN/Creat Ratio 13.36 Ratio (12.00-20.00); Blood Urea Nitrogen 8.8 mg/dL (9.0-27.0); Globulin 2.8 g/dL (1.6-3.3); Potassium 3.6 mmol/L (3.5-5.5); Total Bilirubin 0.5 mg/dL (0.30-1.20); Total Protein 7.6 g/dL (6.2-8.2)
== END | disposition home or self-care (01) ==
LOC: LABWHC1 09:15
PROVIDERS: ATTEND Internal Medicine
DX: R79.89 Other specified abnormal findings of blood chemistry (principal)
CPT/HCPCS: 36415; 80053; 82530; 82533

== ENCOUNTER → 2022-03-19 | Outpatient (CLI) | payer MEDICAID ==
[2022-03-19 10:42] LABS: African American GFR (CKD) 109.1 (60.0-200.0); Anion Gap 12.5 mmol/L (10.00-18.00); BUN/Creat Ratio 14.57 Ratio (12.00-20.00); Blood Urea Nitrogen 10.2 mg/dL (9.0-27.0); Calcium 9.6 mg/dL (8.7-10.3); Carbon Dioxide 23.5 mmol/L (20.0-27.5); Magnesium 2.2 mg/dL (1.5-2.4); Non-African American GFR(CKD) 94.2 (60.0-200.0); Potassium 3.3 mmol/L (3.5-5.5)
== END | disposition home or self-care (01) ==
LOC: LABWHC1 07:14
PROVIDERS: ATTEND Internal Medicine Interventional Cardiology
DX: I10 Essential (primary) hypertension (principal); E87.6 Hypokalemia; R79.89 Other specified abnormal findings of blood chemistry
CPT/HCPCS: 36415; 80048; 83735; 84443

== ENCOUNTER → 2022-03-23 | Outpatient (CLI) | payer MEDICAID ==
[2022-03-23 10:49] LABS: African American GFR (CKD) 109.1 (60.0-200.0); Anion Gap 12.8 mmol/L (10.00-18.00); BUN/Creat Ratio 10.57 Ratio (12.00-20.00); Blood Urea Nitrogen 7.4 mg/dL (9.0-27.0); Calcium 9.5 mg/dL (8.7-10.3); Carbon Dioxide 24.2 mmol/L (20.0-27.5); Non-African American GFR(CKD) 94.2 (60.0-200.0); Potassium 3.5 mmol/L (3.5-5.5)
== END | disposition home or self-care (01) ==
LOC: LABWHC1 07:10
PROVIDERS: ATTEND Internal Medicine Interventional Cardiology
DX: I10 Essential (primary) hypertension (principal)
CPT/HCPCS: 36415; 80048

== ENCOUNTER 2022-04-08 07:08 | Observation (INO) | payer MEDICAID ==
[2022-04-08] MEDS ORDERED: SODIUM CHLORIDE 0.9% 1,000 ML IV STA (07:29)
[2022-04-08] MEDS ORDERED: SODIUM CHLORIDE 0.9% 500 ML 500 ML IV STA (07:29)
--- NOTE | 2022-04-08 08:00 | ED ---
General Adult HPI - General Chief complaint: Syncope Stated complaint: Syncope Time Seen by Provider: 04/08/22 07:25 Source: patient, RN notes reviewed, old records reviewed Mode of arrival: wheelchair Limitations: no limitations - History of Present Illness Initial comments: Patient is a 61-year-old female with past medical history remarkable for hyper tension, GERD who presents emergency Department after feeling lightheaded earlier. Had a near syncopal episode at work. She states she took her blood pressure medication this morning, and then when she went [place] were faint, dizzy and sweaty. She denies any headache. Denies any shortness breath, chest pain, abdominal pain, nausea, vomiting. States she did eat this plan. Is feeling improved at this time. States she recently did increase her blood pressure medications. Was originally on coreg 6.25mg, however could double dose of 12.5 mg last night due to continued elevated blood pressures. Repeated that dose this morning. Believes it is likely secondary to this. Denies any history of stent placement, heart attacks. Has no other acute complaints at this time. Denies loss of consciousness or hitting his head. Describes the episode earlier is feeling lightheaded, with vision narrowing. However did not lose consciousness. Did not hit head. - Related Data Home Medications Medication Instructions Recorded Confirmed Aspirin EC [Ecotrin Low Dose] 81 mg PO HS 10/02/21 04/08/22 Losartan [Cozaar] 100 mg PO DAILY 01/30/22 04/08/22 Hydrochlorothiazide 12.5mg Tab 6.25 mg PO DAILY 04/08/22 04/08/22 Potassium Chloride [K-Tab ER] 10 meq PO HS 04/08/22 04/08/22 Sertraline [Zoloft] 25 mg PO DAILY PRN 04/08/22 04/08/22 amLODIPine [Norvasc] 2.5 mg PO HS 04/08/22 04/08/22 carvediloL [Coreg] 6.25 mg PO BID 04/08/22 04/08/22 Previous Rx's Medication Instructions Recorded Atorvastatin [Lipitor] 40 mg PO HS 30 Days #30 tablet 10/04/21 Allergies Allergy/AdvReac Type Severity Reaction Status Date / Time adhesive tape Allergy Rash/Hives Verified 04/08/22 09:18 Review of Systems ROS Statement: Those systems with pertinent positive or pertinent negative responses have been documented in the HPI. Review of Systems: CONST: Denies fever EYES: Denies blurry vision ENT: Denies nasal congestion C/V: Denies Chest pain RESP: Denies shortness of breath GI: Denies abdominal pain : Denies dysuria SKIN: Denies rash. MSK: Denies joint pain. NEURO: Denies headache ROS Other: All systems not noted in ROS Statement are negative. Past Medical History Past Medical History: GERD/Reflux, Hypertension History of Any Multi-Drug Resistant Organisms: None Reported Past Surgical History: Appendectomy Additional Past Surgical History / Comment(s): COLONOSCOPY ovaries removed Past Anesthesia/Blood Transfusion Reactions: No Reported Reaction Past Psychological History: No Psychological Hx Reported Smoking Status: Never smoker Past Alcohol Use History: Occasional Past Drug Use History: None Reported - Past Family History Father Family Medical History: Cancer General Exam - General Exam Comments Initial Comments: General: Appears in no acute distress. HEAD: Normal with no signs of head trauma. EYES: PERRLA, EOMI, conjunctiva normal, no discharge. Pupils are 3 mm and equal bilaterally. ENT: Hearing grossly intact, normal oropharynx. RESPIRATORY: Clear breath sounds bilaterally. No wheezes, rales, or rhonchi. C/V: Regular rate and rhythm. S1 and S2 auscultated, no edema, peripheral pulses 2+ and intact throughout ABD: Abd is soft, nontender, nondistended EXT: Normal range of motion, no obvious deformity SKIN: No rashes or lesions observed on exposed skin. NEURO: Alert and oriented 4. No focal sensory strength deficits. Cranial nerves II through XII are intact. NIH is 0. GCS is 15. Cerebellar function is intact as evident by normal finger nose testing, absence of dysdiadochokinesia, normal [id number] testing. Limitations: no limitations Course Vital Signs 04/08/22 04/08/22 04/08/22 07:11 08:53 10:05 Temperature 97.8 F Pulse Rate 65 54 L 64 Respiratory 18 18 18 Rate Blood Pressure 73/52 108/70 120/73 O2 Sat by Pulse 100 99 97 Oximetry Medical Decision Making - Medical Decision Making Based on the patient's presentation and physical exam, which she expressed a nursing episode likely secondary to increasing her blood pressure medications and transient hypotension. Patient was found to be mildly hypotensive in triage and 73/52, which improved when she presented to her room to 108/70. States her symptoms are improved at this time as well. However we will obtain a cardiac workup including EKG, chest x-ray, troponin, basic labs. Urinalysis also be obtained. She will be administered 1500 mL of IV fluids. Patient was in agreement with this plan. EKG showed no signs of acute ischemia. Chest x-ray showed no acute cardiopulmonary process.Laboratory studies are remarkable for an elevated troponin of 0.177. Remainder of the labs are unremarkable. I did obtain a repeat EKG when I found out the value of the troponin, which showed no acute changes. Patient remains asymptomatic at this time. She states she feels improved. He has a mild headache for which she'll be given and Tylenol as well as IV fluids. I did speak with the on-call powertrain control systems engineer, Dr. Mcgrath who agreed with holding heparin as the transient hypotension likely caused the elevation in troponin. We will provide her with a dose of aspirin as well as continue to trend the troponin. Blood pressure is improved at this time with systolics in the 100s. Patient was in agreement this plan. I spoke with the admitting team, Dr. Anderson who accepted the patient. She was in agreement this plan. She is admitted to telemetry bed. - Lab Data Result diagrams: 04/08/22 08:00 04/08/22 08:00 Lab Results 04/08/22 04/08/22 04/08/22 Range/Units 08:00 08:00 08:00 WBC 10.4 (3.8-10.6) k/uL RBC 4.14 (3.80-5.40) m/uL Hgb 12.8 (11.4-16.0) gm/dL Hct 37.8 (34.0-46.0) % MCV 91.2 (80.0-100.0) fL MCH 30.8 (25.0-35.0) pg MCHC 33.7 (31.0-37.0) g/dL RDW 12.4 (11.5-15.5) % Plt Count 351 (150-450) k/uL MPV 6.6 Neutrophils % 74 % Lymphocytes % 19 % Monocytes % 5 % Eosinophils % 1 % Basophils % 1 % Neutrophils # 7.8 H (1.3-7.7) k/uL Lymphocytes # 1.9 (1.0-4.8) k/uL Monocytes # 0.5 (0-1.0) k/uL Eosinophils # 0.1 (0-0.7) k/uL Basophils # 0.1 (0-0.2) k/uL PT 11.0 (9.0-12.0) sec INR 1.0 (<1.2) APTT 22.1 (22.0-30.0) sec Sodium 133 L (137-145) mmol/L Potassium 3.8 (3.5-5.1) mmol/L Chloride 100 (98-107) mmol/L Carbon Dioxide 23 (22-30) mmol/L Anion Gap 10 mmol/L BUN 13 (7-17) mg/dL Creatinine 0.70 (0.52-1.04) mg/dL Est GFR (CKD-EPI)AfAm >90 (>60 ml/min/1.73 sqM) Est GFR (CKD-EPI)NonAf >90 (>60 ml/min/1.73 sqM) Glucose 144 H (74-99) mg/dL Calcium 9.1 (8.4-10.2) mg/dL Magnesium 2.0 (1.6-2.3) mg/dL Total Bilirubin 0.7 (0.2-1.3) mg/dL AST 26 (14-36) U/L ALT 24 (4-34) U/L Alkaline Phosphatase 40 (38-126) U/L Troponin I (0.000-0.034) ng/mL Total Protein 6.8 (6.3-8.2) g/dL Albumin 4.0 (3.5-5.0) g/dL 04/08/22 Range/Units 08:00 WBC (3.8-10.6) k/uL RBC (3.80-5.40) m/uL Hgb (11.4-16.0) gm/dL Hct (34.0-46.0) % MCV (80.0-100.0) fL MCH (25.0-35.0) pg MCHC (31.0-37.0) g/dL RDW (11.5-15.5) % Plt Count (150-450) k/uL MPV Neutrophils % % Lymphocytes % % Monocytes % % Eosinophils % % Basophils % % Neutrophils # (1.3-7.7) k/uL Lymphocytes # (1.0-4.8) k/uL Monocytes # (0-1.0) k/uL Eosinophils # (0-0.7) k/uL Basophils # (0-0.2) k/uL PT (9.0-12.0) sec INR (<1.2) APTT (22.0-30.0) sec Sodium (137-145) mmol/L Potassium (3.5-5.1) mmol/L Chloride (98-107) mmol/L Carbon Dioxide (22-30) mmol/L Anion Gap mmol/L BUN (7-17) mg/dL Creatinine (0.52-1.04) mg/dL Est GFR (CKD-EPI)AfAm (>60 ml/min/1.73 sqM) Est GFR (CKD-EPI)NonAf (>60 ml/min/1.73 sqM) Glucose (74-99) mg/dL Calcium (8.4-10.2) mg/dL Magnesium (1.6-2.3) mg/dL Total Bilirubin (0.2-1.3) mg/dL AST (14-36) U/L ALT (4-34) U/L Alkaline Phosphatase (38-126) U/L Troponin I 0.177 H* (0.000-0.034) ng/mL Total Protein (6.3-8.2) g/dL Albumin (3.5-5.0) g/dL - EKG Data -: EKG Interpreted by Me EKG Comments: 12-lead Electrocardiogram Interpretation Note EKG was reviewed and interpreted by myself. 12-lead ECG performed at 0729 is interpreted by me as revealing normal sinus rhythm at a rate of 60 beats per minute. [place] is normal. ME Intervals 180 ms, QRS duration is 89 ms, QTc is 399 ms.. There were no ST or T wave abnormalities to suggest myocardial ischemia or injury. R wave progression across the precordium was satisfactory. By my interpretation this EKG is non-diagnostic for acute ischemia. 12-lead Electrocardiogram Interpretation Note EKG was reviewed and interpreted by myself. 12-lead ECG performed at 0903 is interpreted by me as revealing normal sinus rhythm at a rate of 59 beats per minute. [place] is normal. ME interval is 187 ms, QRS duration is 89 ms, QTc is 428 ms.. There were no ST or T wave abnormalities to suggest myocardial ischemia or injury. R wave progression across the precordium was satisfactory. By my interpretation this EKG is non-diagnostic for acute ischemia. Disposition Clinical Impression: Near syncope, Hypotension, Elevated troponin Disposition: ADMITTED IP TO THIS HOSP Condition: Stable Time of Disposition: 09:25
[2022-04-08 08:14] LABS: Basophils # (A) 0.1 k/uL (0-0.2); Basophils % (A) 1 %; Eosinophils # (A) 0.1 k/uL (0-0.7); Eosinophils % (A) 1 %; HCT 37.8 % (34.0-46.0); HGB 12.8 gm/dL (11.4-16.0); Lymphocytes # (A) 1.9 k/uL (1.0-4.8); Lymphocytes % (A) 19 %; MCH 30.8 pg (25.0-35.0); MCHC 33.7 g/dL (31.0-37.0); MCV 91.2 fL (80.0-100.0); Mean Platelet Volume 6.6; Monocytes # (A) 0.5 k/uL (0-1.0); Monocytes % (A) 5 %; Neutrophils # (A) 7.8 k/uL (1.3-7.7); Neutrophils % (A) 74 %; Platelet Count 351 k/uL (150-450); RBC 4.14 m/uL (3.80-5.40); RDW 12.4 % (11.5-15.5); WBC 10.4 k/uL (3.8-10.6)
[2022-04-08 08:30] LABS: ALT 24 U/L (4-34); AST 26 U/L (14-36); African American GFR (CKD) >90 (>60 ml/min/1.73 sqM); Alkaline Phosphatase 40 U/L (38-126); Anion Gap 10 mmol/L; Blood Urea Nitrogen 13 mg/dL (7-17); Calcium 9.1 mg/dL (8.4-10.2); Carbon Dioxide 23 mmol/L (22-30); Chloride 100 mmol/L (98-107); Glucose 144 mg/dL (74-99); Non-African American GFR(CKD) >90 (>60 ml/min/1.73 sqM); Sodium 133 mmol/L (137-145); Total Bilirubin 0.7 mg/dL (0.2-1.3); Total Protein 6.8 g/dL (6.3-8.2)
[2022-04-08 08:33] LABS: Partial Thromboplastin Time 22.1 sec (22.0-30.0)
[2022-04-08 08:35] LABS: Potassium 3.8 mmol/L (3.5-5.1)
--- NOTE | 2022-04-08 08:49 | XR ---
EXAMINATION TYPE: XR chest 2V DATE OF EXAM: 04/08/2022 COMPARISON: Chest x-ray January 30, 2022 HISTORY: Hypotension and weakness. TECHNIQUE: Frontal and lateral views of the chest are obtained. FINDINGS: There is no suspicious focal air space opacity, pleural effusion, or pneumothorax seen. T he cardiac silhouette size is within normal limits. The osseous structures are demineralized. IMPRESSION: No acute pulmonary process.
[2022-04-08] MEDS ORDERED: ASPIRIN 81 MG PO STA (09:24)
[2022-04-08] MEDS ORDERED: NALOXONE 0.4 MG/ML 1 ML VIAL IV PRN (09:32)
[2022-04-08] MEDS ORDERED: ACETAMINOPHEN TAB 500 MG TAB PO STA (09:33)
[2022-04-08] MEDS: SODIUM CHLORIDE 0.9% 1,000 ML IV SCH ×2 (10:03→23:38)
[2022-04-08] MEDS ORDERED: SERTRALINE 25 MG TAB PO PRN (11:01)
--- NOTE | 2022-04-08 11:26 | P.HPIM ---
History of Present Illness H&P Date: 04/08/22 History of Presenting Illness: Patient is a very pleasant 61-year-old female with a past medical history of hyperlipidemia, anxiety, and hypertension on multiple medications including amlodipine, carvedilol, hydrochlorothiazide, and losartan. Patient reports long-standing history of difficult to control hypertension and under care of prescription clerk Dr. Martinez. Patient reports multiple medication changes over the past 6 months in attempts to optimize blood pressure control. Patient states last night her blood pressure was elevated greater than 150 systolic so she doubled up on her Coreg taking 12.5 mg in attempts to improve this pressure and went to bed. Patient reports this morning she again continued to have high blood pressure at this time along with a mild headache so she again doubled up on her Coreg taking 12.5 mg this morning and drove to work. Patient states upon arrival to work she began to feel very lightheaded and dizzy and things started to go foggy with narrowing of her peripheral vision or tunnel vision and she felt as though she was going to pass out. Patient denies losing consciousness, falling, or hitting her head. Patient works here in the hospital and was brought down to the emergency department for evaluation. Patient currently denies having any headache, changes in vision, changes in hearing or tinnitus, diaphoresis, chest pain, palpitations, shortness of breath, nausea/vomiting, or experiencing any numbness/tingling/weakness/swelling in her extremities. Patient underwent full evaluation in the emergency department. Upon arrival to the emergency department patient was found to be significantly hypotensive with blood pressure 73/52, heart rate 65, and respiratory rate 18 with SpO2 of 100% on room air. Patient was given a 1500 mL bolus of 0.9% normal saline resulting in improvement of blood pressure to 108/70. EKG was completed showing normal sinus rhythm at 60 bpm with J-point elevation in leads II, III, and aVF this is unchanged (with the exception of rate) when compared to previous EKGs completed 01/30/2022. Troponin elevated at 0.177. CBC unremarkable, coags normal findings, and BMP unremarkable with the exception of mild hyponatremia with sodium of 133. Chest x-ray was completed and was negative for acute cardiopulmonary process. Patient was given aspirin 324 mg 1 dose. She is artur ng admitted under our services with consultation to cardiology. Review of systems: Pertinent positives and negatives as discussed in HPI, a complete review of systems was performed and all other systems are negative. Physical exam: Vital signs reviewed and stable. Thin build. General: Nontoxic, no distress and appears stated age. Derm: Skin warm and dry, normal coloration for ethnicity. Head: Atraumatic, normocephalic and symmetric. Eyes: EOMs intact, no lid lag, and anicteric sclera Mouth: no lip lesions, mucus membranes moist Cardiovascular: regular rate and rhythm with normal S1S2, no murmur, positive posterior tibial pulses bilaterally, and cap refill < 2 seconds. Lungs: Respirations even, regular, and unlabored on room air. Lungs CTA bilaterally, no rhonchi, no rales, no wheezing, and no accessory muscle usage. Abdominal: soft, nontender to palpation, no guarding, no appreciable organom egaly Ext: ROM intact. No gross muscle atrophy, no edema, no contractures Neuro: Speech clear, face symmetrical and CN II-XII grossly intact with no noted focal neuro deficits Psych: Alert and oriented to person, place, time, and situation. Appropriate and pleasant affect. Assessment and Plan of Care: Elevated troponin, possibly demand ischemia secondary to hypotensive state Uncontrolled hypertension with episode of hypotension resulting from patient doubling up on medications Presyncopal episode, likely secondary to hypotension Mild hyponatremia, likely secondary to daily diuretic use -Cardiology consult, appreciate further recommendations -Telemetry monitoring -Trend troponins -Cardiac diet -Cardiac diet -Lipid profile with a.m. labs. -Echocardiogram completed on 10/03/21 revealing a normal EF of 60-65% with no significant valvular abnormalities. -Cardiac catheterization also completed on 10/03/21 which revealed minor irregularities with no significant disease with proximal LAD having a smooth narrowing with stenosis no more than 30%. Anxiety -Continue daily medication regimen with sertraline 25 mg daily. The patient is admitted with an anticipated less than 2 midnight stay for evaluation of presyncopal episode secondary to hypotension with elevated troponin. CODE STATUS: Full code DVT prophylaxis: Heparin Discussed with: Patient and RN Anticipated discharge date: Likely tomorrow morning Anticipated discharge place: Home A total of 41 minutes was spent on the care of this complex patient more than 50% of the time was spent in counseling and care coordination. Scott Nunes NP rendered care for this patient independently, reviewed the findings and plan as documented in the note above. I did not physically speak with or examine the patient on this date. Past Medical History Past Medical History: GERD/Reflux, Hypertension History of Any Multi-Drug Resistant Organisms: None Reported Past Surgical History: Appendectomy Additional Past Surgical History / Comment(s): COLONOSCOPY ovaries removed Past Anesthesia/Blood Transfusion Reactions: No Reported Reaction Past Psychological History: No Psychological Hx Reported Smoking Status: Never smoker Past Alcohol Use History: Occasional Past Drug Use History: None Reported - Past Family History Father Family Medical History: Cancer Medications and Allergies Home Medications Medication Instructions Recorded Confirmed Type Aspirin EC [Ecotrin Low Dose] 81 mg PO HS 10/02/21 04/08/22 History Atorvastatin [Lipitor] 40 mg PO HS 30 Days #30 tablet 10/04/21 04/08/22 Rx Losartan [Cozaar] 100 mg PO DAILY 01/30/22 04/08/22 History Hydrochlorothiazide 12.5mg Tab 6.25 mg PO DAILY 04/08/22 04/08/22 History Potassium Chloride [K-Tab ER] 10 meq PO HS 04/08/22 04/08/22 History Sertraline [Zoloft] 25 mg PO DAILY PRN 04/08/22 04/08/22 History amLODIPine [Norvasc] 2.5 mg PO HS 04/08/22 04/08/22 History carvediloL [Coreg] 6.25 mg PO BID 04/08/22 04/08/22 History Allergies Allergy/AdvReac Type Severity Reaction Status Date / Time adhesive tape Allergy Rash/Hives Verified 04/08/22 09:18 Physical Exam Osteopathic Statement: *. No significant issues noted on an osteopathic structural exam other than those noted in the History and Physical/Consult. Vitals: Vital Signs Temp Pulse Resp BP Pulse Ox 04/08/22 10:05 64 18 120/73 97 04/08/22 08:53 54 L 18 108/70 99 04/08/22 07:11 97.8 F 65 18 73/52 100 Intake and Output 04/07/22 04/08/22 04/08/22 22:59 06:59 14:59 Other: Weight 55.792 kg Results CBC & Chem 7: 04/08/22 08:00 04/08/22 08:00 Labs: Abnormal Lab Results - Last 24 Hours (Table) 05/04/08/22 04/08/22 Range/Units 08:00 08:00 08:00 Neutrophils # 7.8 H (1.3-7.7) k/uL Sodium 133 L (137-145) mmol/L Glucose 144 H (74-99) mg/dL Troponin I 0.177 H* (0.000-0.034) ng/mL
[2022-04-08 13:44] LABS: Appearance,Urine Clear (Clear); Bilirubin,Urine Negative (Negative); Blood,Urine Negative (Negative); Color,Urine Colorless; Glucose,Urine (UA) Negative (Negative); Ketones,Urine Negative (Negative); Leukocyte Esterase,Urine Negative (Negative); Nitrite,Urine Negative (Negative); PH, Urine 6.5 (5.0-8.0); Protein,Urine Negative (Negative); Specific Gravity,Urine 1.005 (1.001-1.035); Urobilinogen,Urine <2.0 mg/dL (<2.0)
--- NOTE | 2022-04-08 15:41 | P.CRDCN ---
History of Present Illness Consult date: 04/08/22 History of present illness: This is a 61-year-old female with history of labile hypertension and abnormal troponins who presented to the hospital with an episode of syncope at work. Apparently patient's blood pressure has been difficult to control. During the daytime when she is at work, Her blood pressure usually is better controlled. However, in the evening when she goes home she developed a tense sensation in the head and her blood pressure usually goes up to 180 systolic. Patient's medications were adjusted. Currently she is on losartan 100 mg in the morning Coreg 6.25 mg by mouth twice a day the dose of which was increased recently to 12.5 mg by mouth twice a day, hydrochlorothiazide and amlodipine 2.5 mg at bedtime. She is also on Lipitor. In September 2021 patient presented to the hospital with similar uncontrolled hypertension and abnormal troponin. Patient had a cardiac cath and was found a mild disease at the time.. This time, patient came to work after taking her medications and apparently started feeling dizzy and lightheaded. She was punching and are part and upper and she was made to sit in a chair because of dizziness. She might have lost consciousness for a few seconds. Subsequently she was brought to the emergency room. In the emergency room her blood pressure was found to be low in the range of 70s. Gradually the blood pressure did come up and currently is about 120/70. It appears that patient's became hypotensive from medication that matter resulted in syncope. Her troponins values have been chronically abnormal and may not be suggestive of any acute myocardial injury pattern. Further examination depend upon the clinical course. Review of Systems As per the chart Past Medical History Past Medical History: GERD/Reflux, Hypertension History of Any Multi-Drug Resistant Organisms: None Reported Past Surgical History: Appendectomy Additional Past Surgical History / Comment(s): COLONOSCOPY ovaries removed Past Anesthesia/Blood Transfusion Reactions: No Reported Reaction Past Psychological History: No Psychological Hx Reported Smoking Status: Never smoker Past Alcohol Use History: Occasional Past Drug Use History: None Reported - Past Family History Father Family Medical History: Cancer Medications and Allergies Home Medications Medication Instructions Recorded Confirmed Type Aspirin EC [Ecotrin Low Dose] 81 mg PO HS 10/02/21 04/08/22 History Atorvastatin [Lipitor] 40 mg PO HS 30 Days #30 tablet 10/04/21 04/08/22 Rx Losartan [Cozaar] 100 mg PO DAILY 01/30/22 04/08/22 History Hydrochlorothiazide 12.5mg Tab 6.25 mg PO DAILY 04/08/22 04/08/22 History Potassium Chloride [K-Tab ER] 10 meq PO HS 04/08/22 04/08/22 History Sertraline [Zoloft] 25 mg PO DAILY PRN 04/08/22 04/08/22 History amLODIPine [Norvasc] 2.5 mg PO HS 04/08/22 04/08/22 History carvediloL [Coreg] 6.25 mg PO BID 04/08/22 04/08/22 History Allergies Allergy/AdvReac Type Severity Reaction Status Date / Time adhesive tape Allergy Rash/Hives Verified 04/08/22 09:18 Physical Exam Vitals: Vital Signs Temp Pulse Resp BP Pulse Ox 04/08/22 11:46 54 L 18 121/72 96 04/08/22 10:05 64 18 120/73 97 04/08/22 08:53 54 L 18 108/70 99 04/08/22 07:11 97.8 F 65 18 73/52 100 Intake and Output 04/08/22 04/08/22 04/08/22 06:59 14:59 22:59 Other: Weight 55.792 kg GENERAL EXAM: Patient is alert and oriented and doesn't appear to be in any acute distress HEENT: Normocephalic. Normal reaction of pupils, equal size, normal range of extraocular motion. No erythema or exudates in the throat. NECK: No masses, no nuchal rigidity. CHEST: No chest wall deformity. LUNGS: Equal air entry with no crackles or wheeze. HEART: S1 and S2 normal with no audible mumurs or gallops. Regular rhythm, femorals equal on both sides.. ABDOMEN: No hepatosplenomegaly, normal bowel sounds, no guarding or rigidity. SKIN: No rashes CENTRAL NERVOUS SYSTEM: No focal deficits. EXTREMITIES: No cyanosis, clubbing or edema. Results 04/08/22 08:00 04/08/22 08:00 Cardiac Enzymes 04/08/22 04/08/22 04/08/22 Range/Units 08:00 08:00 11:08 AST 26 (14-36) U/L Troponin I 0.177 H* 0.177 H* (0.000-0.034) ng/mL 04/08/22 Range/Units 13:46 AST (14-36) U/L Troponin I 0.176 H* (0.000-0.034) ng/mL Coagulation 04/08/22 Range/Units 08:00 PT 11.0 (9.0-12.0) sec APTT 22.1 (22.0-30.0) sec CBC 04/08/22 Range/Units 08:00 WBC 10.4 (3.8-10.6) k/uL RBC 4.14 (3.80-5.40) m/uL Hgb 12.8 (11.4-16.0) gm/dL Hct 37.8 (34.0-46.0) % Plt Count 351 (150-450) k/uL Comprehensive Metabolic Panel 04/08/22 Range/Units 08:00 Sodium 133 L (137-145) mmol/L Potassium 3.8 (3.5-5.1) mmol/L Chloride 100 (98-107) mmol/L Carbon Dioxide 23 (22-30) mmol/L BUN 13 (7-17) mg/dL Creatinine 0.70 (0.52-1.04) mg/dL Glucose 144 H (74-99) mg/dL Calcium 9.1 (8.4-10.2) mg/dL AST 26 (14-36) U/L ALT 24 (4-34) U/L Alkaline Phosphatase 40 (38-126) U/L Total Protein 6.8 (6.3-8.2) g/dL Albumin 4.0 (3.5-5.0) g/dL Current Medications Generic Name Dose Route Start Last Admin Trade Name Freq PRN Reason Stop Dose Admin Amlodipine Besylate 2.5 mg 04/08/22 21:00 Amlodipine 2.5 Mg Tab PO HS ANDRY Aspirin 81 mg 04/09/22 21:00 Aspirin 81 Mg PO HS ANDRY Atorvastatin Calcium 40 mg 04/08/22 21:00 Atorvastatin 40 Mg Tab PO HS ANDRY Carvedilol 6.25 mg 04/08/22 17:30 Carvedilol 6.25 Mg Tab PO BID-W/MEALS ANDRY Heparin Sodium (Porcine) 5,000 unit 04/08/22 16:00 Heparin Sodium,Porcine/Pf 5,000 Unit/0.5 Ml Syringe SQ Q8HR ANDRY Hydrochlorothiazide 6.25 mg 04/09/22 09:00 Hydrochlorothiazide 25 Mg Tab PO DAILY ANDRY Sodium Chloride 1,000 mls @ 75 mls/hr 04/08/22 09:45 04/08/22 10:03 Saline 0.9% IV 75 mls/hr .[id number] ANDRY Administration Losartan Potassium 100 mg 04/09/22 09:00 Losartan 50 Mg Tab PO DAILY ANDRY Naloxone HCl 0.2 mg 04/08/22 09:32 Naloxone 0.4 Mg/Ml 1 Ml Vial IV Q2M PRN Opioid Reversal Sertraline HCl 25 mg 04/08/22 11:01 Sertraline 25 Mg Tab PO DAILY PRN depression Intake and Output 04/08/22 04/08/22 04/08/22 06:59 14:59 22:59 Other: Weight 55.792 kg Patient Weight 04/09/22 06:59 Weight 55.792 kg 04/08/22 08:00 04/08/22 08:00 EKG Interpretations (text) Sinus rhythm Assessment and Plan (1) Syncope Current Visit: Yes Status: Acute Code(s): R55 - SYNCOPE AND COLLAPSE SNOMED Code(s): 921047704 (2) Elevated troponin Current Visit: Yes Status: Acute Code(s): R77.8 - OTHER SPECIFIED ABNORMALITIES OF PLASMA PROTEINS SNOMED Code(s): 618306723 (3) Hypotension Current Visit: Yes Status: Acute Code(s): I95.9 - HYPOTENSION, UNSPECIFIED SNOMED Code(s): 26001986 (4) Labile hypertension Current Visit: Yes Status: Acute Code(s): R09.89 - OTH SYMPTOMS AND SIGNS INVOLVING THE CIRC AND RESP SYSTEMS SNOMED Code(s): 20361258713752844 Plan: Her syncope or near syncope appears to be related to hypotension. We'll continue to monitor blood pressure and adjust medication. Check blood pressure for postural changes. Abnormal troponin values have been demonstrated in the past in her case and not suggestive of an acute coronary syndrome at this time.
[2022-04-08] MEDS: HEPARIN SODIUM,PORCINE/PF 5,000 UNIT/0.5 ML SYRINGE SQ SCH (16:26)
[2022-04-08] MEDS: carvediloL 6.25 MG TAB PO SCH (17:15)
[2022-04-08] MEDS ORDERED: ATORVASTATIN 40 MG TAB PO SCH (21:00)
[2022-04-08] MEDS ORDERED: amLODIPine 2.5 MG TAB PO SCH (21:00)
[2022-04-08 23:31] VITALS: TEMP 98.2
[2022-04-09] MEDS: HEPARIN SODIUM,PORCINE/PF 5,000 UNIT/0.5 ML SYRINGE SQ SCH ×2 (00:37→08:18)
[2022-04-09 04:50] VITALS: RESP 16
[2022-04-09] MEDS: carvediloL 6.25 MG TAB PO SCH (06:41)
[2022-04-09] MEDS ORDERED: hydroCHLOROthiazide 25 MG TAB PO SCH (09:00)
[2022-04-09] MEDS ORDERED: LOSARTAN 50 MG TAB PO SCH (09:00)
[2022-04-09] MEDS ORDERED: LOSARTAN 50 MG TAB ONE (09:00)
[2022-04-09] MEDS ORDERED: SODIUM CHLORIDE 0.9% 1,000 ML BAG ONE (09:00)
--- NOTE | 2022-04-09 09:16 | CA ---
Transthoracic Echo Report Name: Tequila Wilcox Age: 61 Gender: F : 1960 Exam Date: 04/08/2022 13:46 Exam Location: [facility] Ht (in): Wt (lb): Ordering Physician: Elvis Cazares MD ([id number]) Attending/Referring Phys: Guest Relation Officer Leesa Hinson RDCS Procedure CPT: Indications: Abnormal troponin Cardiac Hx: Technical Quality: Good Contrast 1: Total Dose (mL): Contrast 2: Total Dose (mL): MEASUREMENTS (Male / Female) Normal Values 2D ECHO LV Diastolic Diameter PLAX 4.1 cm 4.2 - 5.9 / 3.9 - 5.3 cm LV Systolic Diameter PLAX 2.6 cm IVS Diastolic Thickness 1.1 cm 0.6 - 1.0 / 0.6 - 0.9 cm LVPW Diastolic Thickness 1.1 cm 0.6 - 1.0 / 0.6 - 0.9 cm LV Relative Wall Thickness 0.5 RV Internal Dim ED PLAX 3.0 cm LA Systolic Diameter LX 3.2 cm 3.0 - 4.0 / 2.7 - 3.8 cm LA Volume 44.9 cm??? 18 - 58 / 22 - 52 cm??? M-MODE Aortic Root Diameter MM 2.9 cm MV E Point Septal Separation 0.2 cm AV Cusp Separation MM 1.8 cm DOPPLER AV Peak Velocity 168.9 cm/s AV Peak Gradient 11.4 mmHg MV Area PHT 2.7 cm??? Mitral E Point Velocity 107.9 cm/s Mitral A Point Velocity 78.3 cm/s Mitral E to A Ratio 1.4 MV Deceleration Time 278.9 ms MV E' Velocity 9.8 cm/s Mitral E to MV E' Ratio 11.0 TR Peak Velocity 255.4 cm/s TR Peak Gradient 26.1 mmHg Right Ventricular Systolic Press 30.6 mmHg FINDINGS Left Ventricle Mildly increased septal wall thickness. Mildly increased posterior wall thickness. Left ventricular ejection fraction is estimated at 60-65 %. Right Ventricle The right ventricle is normal in size and function. Right Atrium The right atrium is normal in size. Left Atrium The left atrium is normal in size. Mitral Valve Structurally normal mitral valve without significant stenosis or prolapse. There is no mitral regurgitation. Aortic Valve Structurally normal aortic valve without significant sclerosis or stenosis. There is no aortic regurgitation. Tricuspid Valve Structurally normal tricuspid valve without significant stenosis. Pulmonary artery systolic pressure is normal. Pulmonic Valve Structurally normal pulmonic valve without significant stenosis. There is no pulmonic regurgitation. Pericardium Normal pericardium without effusion. Aorta Normal aortic root dimension. CONCLUSIONS Normal left ventricular dimension and systolic function Previewed by: Dr. Lane Manzano MD (Electronically Signed) Final Date: 09 Apr 2022 09:15
[2022-04-09 10:38] LABS: African American GFR (CKD) >90 (>60 ml/min/1.73 sqM); Anion Gap 7 mmol/L; Blood Urea Nitrogen 6 mg/dL (7-17); Calcium 8.7 mg/dL (8.4-10.2); Carbon Dioxide 27 mmol/L (22-30); Chloride 107 mmol/L (98-107); Glucose 125 mg/dL (74-99); Non-African American GFR(CKD) >90 (>60 ml/min/1.73 sqM); Potassium 3.9 mmol/L (3.5-5.1); Sodium 141 mmol/L (137-145)
--- NOTE | 2022-04-09 10:53 | P.PN ---
Subjective Progress Note Date: 04/09/22 HISTORY OF PRESENT ILLNESS: This is a 61-year-old female with history of labile hypertension and abnormal troponins who presented to the hospital with an episode of syncope at work. Apparently patient's blood pressure has been difficult to control. During the daytime when she is at work, Her blood pressure usually is better controlled. However, in the evening when she goes home she developed a tense sensation in the head and her blood pressure usually goes up to 180 systolic. Patient's medications were adjusted. Currently she is on losartan 100 mg in the morning Coreg 6.25 mg by mouth twice a day the dose of which was increased recently to 12.5 mg by mouth twice a day, hydrochlorothiazide and amlodipine 2.5 mg at bedtime. She is also on Lipitor. In September 2021 patient presented to the hospital with similar uncontrolled hypertension and abnormal troponin. Patient had a cardiac cath and was found a mild disease at the time.. This time, patient came to work after taking her medications and apparently started feeling dizzy and lightheaded. She was punching and are part and upper and she was made to sit in a chair because of dizziness. She might have lost consciousness for a few seconds. Subsequently she was brought to the emergency room. In the emerg ency room her blood pressure was found to be low in the range of 70s. Gradually the blood pressure did come up and currently is about 120/70. It appears that patient's became hypotensive from medication that matter resulted in syncope. Her troponins values have been chronically abnormal and may not be suggestive of any acute myocardial injury pattern. Further examination depend upon the clinic al course. 04/09/2022 Patient examined this morning at the bedside. Patient denies chest pain or p ressure. She denies short of breath. Patient's blood pressure has been stable. 2-D echo obtained revealing preserved LV function. PHYSICAL EXAM: VITAL SIGNS: Reviewed. GENERAL: Well-developed in no acute distress. NECK: Supple. No JVD or thyromegaly LUNGS: Respirations even and unlabored. Lungs essentially clear to auscultation bilaterally. HEART: Regular rate and rhythm. S1 and S2 heard. EXTREMITIES: Normal range of motion. No clubbing or cyanosis. Peripheral pulse s intact. No lower extremity edema ASSESSMENT: Syncope Hypotension Hypertension ABnormal troponins of unclear etiology PLAN: Continue current cardiac medications Patient is currently stable from a cardiac standpoint Nurse practitioner note has been reviewed by physician. Signing provider agrees with the documented findings, assessment, and plan of care. Objective - Vital Signs Vital signs: Vital Signs Temp 98.2 F 04/08/22 23:30 Pulse 88 04/09/22 08:00 Resp 16 04/09/22 08:00 BP 111/60 04/09/22 08:00 Pulse Ox 98 04/09/22 08:00 FiO2 Intake & Output 04/08/22 04/09/22 04/09/22 18:59 06:59 18:59 Intake Total 180 Balance 180 Weight 55.792 kg Intake: Oral 180 Other: # Voids 1 1 - Labs CBC & Chem 7: 04/08/22 08:00 04/09/22 08:46 Labs: Abnormal Lab Results - Last 24 Hours (Table) 04/08/22 04/08/22 04/09/22 Range/Units 11:08 13:46 08:46 BUN 6 L (7-17) mg/dL Glucose 125 H (74-99) mg/dL Troponin I 0.177 H* 0.176 H* (0.000-0.034) ng/mL
[2022-04-09 14:51] VITALS: BP 137/75; PULSE 82
--- NOTE | 2022-04-09 14:54 | P.DS ---
Providers Date of admission: 04/08/22 09:50 Expected date of discharge: 04/09/22 Attending physician: Ruma Anderson DO Consults: 04/08/22 09:32 Consult Physician Routine Consulting Provider: [facility] Consult Reason/Comments: elevated troponin, transient hypotension 2/2 medication Do you want consulting provider notified?: Already Contacted Primary care physician: Adair Silva MD Hospital Course: Discharge Diagnosis: Elevated troponins, unclear etiology, flat Reported Uncontrolled hypertension with episode of hypotension resulting from patient doubling up on medications Presyncopal episode, secondary to hypotensive state Mild hyponatremia, resolved Anxiety, Continue daily medication regimen with sertraline 25 mg daily an pt discharged home on hydroxyzine 25 mg 4 times daily as needed for anxiety. Hospital Course: Patient is a very pleasant 61-year-old female with a past medical history of hyperlipidemia, anxiety, and hypertension on multiple medications including amlodipine, carvedilol, hydrochlorothiazide, and losartan. Patient reports long-standing history of difficult to control hypertension and under care of assistant professor of business Dr. Martinez. Patient reports multiple medication changes over the past 6 months in attempts to optimize blood pressure control. Patient states last night her blood pressure was elevated greater than 150 systolic so she doubled up on her Coreg taking 12.5 mg in attempts to improve this pressure and went to bed. Patient reports this morning she again continued to have high blood pressure at this time along with a mild headache so she again doubled up on her Coreg taking 12.5 mg this morning and drove to work. Patient states upon arrival to work she began to feel very lightheaded and dizzy and things started to go foggy with narrowing of her peripheral vision or tunnel vision and she felt as though she was going to pass out. Patient denies losing consciousness, falling, or hitting her head. Patient works here in the hospital and was brought down to the emergency department for evaluation. Patient currently denies having any headache, changes in vision, changes in hearing or tinnitus, diaphoresis, chest pain, palpitations, shortness of breath, nausea/vomiting, or experiencing any numbness/tingling/weakness/swelling in her extremities. Patient underwent full evaluation in the emergency department. Upon arrival to the emergency department patient was found to be significantly hypotensive with blood pressure 73/52, heart rate 65, and respiratory rate 18 with SpO2 of 100% on room air. Patient was given a 1500 mL bolus of 0.9% normal saline resulting in improvement of blood pressure to 108/70. EKG was completed showing normal sinus rhythm at 60 bpm with J-point elevation in leads II, III, and aVF this is unchanged (with the exception of rate) when compared to previous EKGs completed 01/30/2022. Troponin elevated at 0.177. CBC unremarkable, coags normal findings, and BMP unremarkable with the exception of mild hyponatremia with sodium of 133. Chest x-ray was completed and was negative for acute cardiopulmonary process. Patient was given aspirin 324 mg 1 dose. She was admitted under our services with consultation to cardiology. Troponins trended overnight and remained flat at 0.177, 0.177, and 0.176. Patient remained free from chest pain, palpitations, shortness of breath, or any other complaints. Hyponatremia resolved after she received IV fluid bolus from ED and gentle hy dration. Echocardiogram completed revealing normal EF with no significant valvular abnormalities. Cardiology clearing patient from cardiac standpoint and recommending outpatient follow-up in their office. Patient is medically stable at this time. Patient prescribed hydroxyzine 25 mg 4 times daily as needed for anxiety. Patient stable for discharge home at this time. Physical exam: Vital signs reviewed and stable. Thin build. General: Nontoxic, no distress and appears stated age. Derm: Skin warm and dry, normal coloration for ethnicity. Head: Atraumatic, normocephalic and symmetric. Eyes: EOMs intact, no lid lag, and anicteric sclera Mouth: no lip lesions, mucus membranes moist Cardiovascular: regular rate and rhythm with normal S1S2, no murmur, positive posterior tibial pulses bilaterally, and cap refill < 2 seconds. Lungs: Respirations even, regular, and unlabored on room air. Lungs CTA bilaterally, no rhonchi, no rales, no wheezing, and no accessory muscle usage. Abdominal: soft, nontender to palpation, no guarding, no appreciable organomegaly Ext: ROM intact. No gross muscle atrophy, no edema, no contractures Neuro: Speech clear, face symmetrical and CN II-XII grossly intact with no noted focal neuro deficits Psych: Alert and oriented to person, place, time, and situation. Appropriate and pleasant affect. A total of 32 minutes of time were spent preparing this complex discharge summary. Pt was discharged on 04/09/22 at 1:05 PM. I reviewed the documentation as provided by the IVORY above, who is the original author of this note. I agree with the documented assessment and plan, with the following changes: none Patient Condition at Discharge: Stable Plan - Discharge Summary New Discharge Prescriptions: New hydrOXYzine pamoate [Vistaril] 25 mg PO QID PRN #60 cap PRN Reason: anxiety Continue Aspirin EC [Ecotrin Low Dose] 81 mg PO HS Atorvastatin [Lipitor] 40 mg PO HS 30 Days #30 tablet Losartan [Cozaar] 100 mg PO DAILY Hydrochlorothiazide 12.5mg Tab 6.25 mg PO DAILY Sertraline [Zoloft] 25 mg PO DAILY PRN PRN Reason: depression amLODIPine [Norvasc] 2.5 mg PO HS carvediloL [Coreg] 6.25 mg PO BID Potassium Chloride [K-Tab ER] 10 meq PO HS Discharge Medication List Aspirin EC [Ecotrin Low Dose] 81 mg PO HS 10/02/21 [History] Atorvastatin [Lipitor] 40 mg PO HS 30 Days #30 tablet 10/04/21 [Rx] Losartan [Cozaar] 100 mg PO DAILY 01/30/22 [History] Hydrochlorothiazide 12.5mg Tab 6.25 mg PO DAILY 04/08/22 [History] Potassium Chloride [K-Tab ER] 10 meq PO HS 04/08/22 [History] Sertraline [Zoloft] 25 mg PO DAILY PRN 04/08/22 [History] amLODIPine [Norvasc] 2.5 mg PO HS 04/08/22 [History] carvediloL [Coreg] 6.25 mg PO BID 04/08/22 [History] hydrOXYzine pamoate [Vistaril] 25 mg PO QID PRN #60 cap 04/09/22 [Rx] Follow up Appointment(s)/Referral(s): Lane Manzano MD [STAFF PHYSICIAN] - 04/20/22 3:45 pm Adair Silva MD [Primary Care Provider] - 1-2 days Activity/Diet/Wound Care/Special Instructions: Activity: As tolerated. Take breaks as needed. Diet: Heart healthy and carb consistent diet. Avoid salts, or foods with hidden salts such as canned or boxed foods and frozen dinners. Extra salt makes your heart work harder and traps the fluid in your body for longer. Special Instructions: Take all of your medications as directed and remember to keep all of your doctor's appointments and follow-up as needed. Thank you for allowing us to participate in your care, it was truly a pleasure having you for our patient!!! Discharge Disposition: HOME SELF-CARE
[2022-04-09 17:00] LABS: Basophils % (A) 0 %; Eosinophils % (A) 1 %; HCT 39.5 % (34.0-46.0); HGB 12.6 gm/dL (11.4-16.0); Lymphocytes # (A) 1.8 k/uL (1.0-4.8); Lymphocytes % (A) 26 %; MCH 30.7 pg (25.0-35.0); MCHC 31.9 g/dL (31.0-37.0); Mean Platelet Volume 8.1; Monocytes # (A) 0.3 k/uL (0-1.0); Monocytes % (A) 5 %; Neutrophils # (A) 4.6 k/uL (1.3-7.7); Neutrophils % (A) 67 %; Platelet Count 309 k/uL (150-450); RBC 4.12 m/uL (3.80-5.40); RDW 12.5 % (11.5-15.5); WBC 6.9 k/uL (3.8-10.6)
[2022-04-09] MEDS ORDERED: ASPIRIN 81 MG PO SCH (21:00)
== END 2022-04-09 15:43 | disposition home or self-care (01) ==
LOC: EC 07:08 → 3SCARD 09:50
PROVIDERS: ADMIT Internal Medicine; ATTEND Internal Medicine
DX: I95.2 Hypotension due to drugs (principal); T44.7X5A Adverse effect of beta-adrenoreceptor antagonists, initial encounter; R79.89 Other specified abnormal findings of blood chemistry; E87.1 Hypo-osmolality and hyponatremia; I10 Essential (primary) hypertension; E78.5 Hyperlipidemia, unspecified; F41.9 Anxiety disorder, unspecified; K21.9 Gastro-esophageal reflux disease without esophagitis; Z79.82 Long term (current) use of aspirin; Z79.899 Other long term (current) drug therapy; Z91.048 Other nonmedicinal substance allergy status; Z98.890 Other specified postprocedural states; Z90.49 Acquired absence of other specified parts of digestive tract; Z90.722 Acquired absence of ovaries, bilateral; Z80.9 Family history of malignant neoplasm, unspecified
CPT/HCPCS: 96372 ×2; 96360; 96361; 99285; 36415; 93005; 93306; 80053; 80048; 83735; 84484; 85025 ×2; 85610; 85730; 81003; 71046; G0378 ×2; J1644 ×2

== ENCOUNTER → 2022-04-21 | Outpatient (CLI) | payer MEDICAID ==
[2022-04-21 11:01] LABS: African American GFR (CKD) 106.7 (60.0-200.0); Albumin 4.5 g/dL (3.8-4.9); Albumin/Globulin Ratio 1.47 (1.60-3.17); Anion Gap 10.5 mmol/L (10.00-18.00); BUN/Creat Ratio 23.7 Ratio (12.00-20.00); Blood Urea Nitrogen 16.9 mg/dL (9.0-27.0); Calcium 9.8 mg/dL (8.7-10.3); Carbon Dioxide 24.7 mmol/L (20.0-27.5); Globulin 3.1 g/dL (1.6-3.3); Non-African American GFR(CKD) 92.1 (60.0-200.0); Potassium 3.9 mmol/L (3.5-5.5); Total Bilirubin 0.5 mg/dL (0.30-1.20); Total Protein 7.6 g/dL (6.2-8.2)
== END | disposition home or self-care (01) ==
LOC: LABWHC1 06:57
PROVIDERS: ATTEND Internal Medicine Endocrinology, Diabetes & Metabolism
DX: D35.00 Benign neoplasm of unspecified adrenal gland (principal)
CPT/HCPCS: 36415; 80053; 82024; 82088; 82533; 83835; 84244

== ENCOUNTER → 2022-04-28 | Outpatient (CLI) | payer MEDICAID ==
--- NOTE | 2022-04-28 21:47 | CT ---
EXAMINATION TYPE: CT adrenal glands wo/w con DATE OF EXAM: 04/28/2022 INDICATION: neoplasm of adrenal gland CT DLP: 538.40 mGy.cm Automated Exposure Control for Dose Reduction was Utilized. TECHNIQUE AND CONTRAST: CT scan of the abdomen is performed without and with IV Contrast, as per adrenal washout protocol. Th e patient injected with 100 mL of Isovue 300. COMPARISON: CT dated 02/13/2022 FINDINGS: Unremarkable adrenals with no definite adrenal lesion identified in today's CT scan or February 2022 CT scan. Unremarkable liver, gallbladder, spleen, pancreas and kidneys. Unremarkable stomach, duodenum and visualized small and large bowel. Unremarkable abdominal aorta. No abdominal lymphadenopathy or free abdominal fluid. Unremarkable lung bases. No aggressive bone lesion. IMPRESSION: No definitive adrenal lesion identified. Unremarkable CT scan.
== END | disposition home or self-care (01) ==
LOC: RADCTMAIN 15:48
PROVIDERS: ATTEND Internal Medicine Endocrinology, Diabetes & Metabolism
DX: D35.00 Benign neoplasm of unspecified adrenal gland (principal)
CPT/HCPCS: 74170; Q9967 ×2

== ENCOUNTER → 2022-08-07 | Outpatient (CLI) | payer MEDICAID ==
[2022-08-07 10:53] LABS: Basophils # (A) 0.04 X 10*3/uL (0.00-0.10); Basophils % (A) 0.7 %; Eosinophils # (A) 0.19 X 10*3/uL (0.04-0.35); Eosinophils % (A) 3.1 %; HCT 37.8 % (37.2-46.3); HGB 12.2 g/dL (12.0-15.0); Immature Grans, Automated 0.2 %; Lymphocytes # (A) 1.98 X 10*3/uL (0.90-5.00); Lymphocytes % (A) 32.5 %; MCH 29.2 pg (27.0-32.0); MCHC 32.3 g/dL (32.0-37.0); MCV 90.4 fL (80.0-97.0); Mean Platelet Volume 9.2 fL (9.5-12.2); Monocytes # (A) 0.51 X 10*3/uL (0.20-1.00); Monocytes % (A) 8.4 %; NRBC Per 100 WBC 0 /100 WBCS (0.0-0.0); Neutrophils # (A) 3.37 X 10*3/uL (1.80-7.70); Neutrophils % (A) 55.1 %; Platelet Count 242 X 10*3/uL (140-440); RBC 4.18 X 10*6/uL (4.10-5.20); RDW 12.3 % (11.5-14.5)
[2022-08-07 11:11] LABS: ALT 57 U/L (8-44); AST 30 U/L (13-35); African American GFR (CKD) 92.9 (60.0-200.0); Albumin 4.2 g/dL (3.8-4.9); Alkaline Phosphatase 67 U/L (41-126); BUN/Creat Ratio 22.38 Ratio (12.00-20.00); Blood Urea Nitrogen 17.9 mg/dL (9.0-27.0); Calcium 9.3 mg/dL (8.7-10.3); Carbon Dioxide 30.1 mmol/L (20.0-27.5); Chloride 103 mmol/L (96-109); Globulin 2.8 g/dL (1.6-3.3); Glucose 92 mg/dL (70-110); Non-African American GFR(CKD) 80.1 (60.0-200.0); Sodium 141 mmol/L (135-145)
[2022-08-07 11:22] LABS: Chol/HDL Ratio 2.45 Ratio
== END | disposition home or self-care (01) ==
LOC: LABWHC1 06:54
PROVIDERS: ATTEND Internal Medicine
DX: I10 Essential (primary) hypertension (principal)
CPT/HCPCS: 36415; 80053; 80061; 83721; 84443; 85025

== ENCOUNTER → 2023-01-30 | Outpatient (CLI) | payer MEDICAID ==
[2023-01-30 12:02] LABS: Basophils # (A) 0.04 X 10*3/uL (0.00-0.10); Basophils % (A) 0.7 %; Eosinophils # (A) 0.13 X 10*3/uL (0.04-0.35); Eosinophils % (A) 2.2 %; HCT 34.7 % (37.2-46.3); HGB 11.5 g/dL (12.0-15.0); Immature Grans, Automated 0.2 %; Lymphocytes % (A) 37.9 %; MCH 30.3 pg (27.0-32.0); MCHC 33.1 g/dL (32.0-37.0); MCV 91.6 fL (80.0-97.0); Mean Platelet Volume 9.3 fL (9.5-12.2); Monocytes % (A) 8.6 %; NRBC Per 100 WBC 0 /100 WBCS (0.0-0.0); Neutrophils # (A) 2.92 X 10*3/uL (1.80-7.70); Neutrophils % (A) 50.4 %; Platelet Count 216 X 10*3/uL (140-440); RBC 3.79 X 10*6/uL (4.10-5.20); RDW 13.4 % (11.5-14.5)
[2023-01-30 12:15] LABS: ALT 44 U/L (8-44); AST 33 U/L (13-35); African American GFR (CKD) 110.3 (60.0-200.0); Albumin 4.3 g/dL (3.8-4.9); Albumin/Globulin Ratio 1.75 (1.60-3.17); Alkaline Phosphatase 61 U/L (41-126); BUN/Creat Ratio 26.36 Ratio (12.00-20.00); Blood Urea Nitrogen 17.5 mg/dL (9.0-27.0); Calcium 9.2 mg/dL (8.7-10.3); Carbon Dioxide 29.3 mmol/L (20.0-27.5); Chloride 105 mmol/L (96-109); Chol/HDL Ratio 2.39 Ratio; Globulin 2.4 g/dL (1.6-3.3); Glucose 97 mg/dL (70-110); LDL Cholesterol,Calculated 76.6 mg/dL (0.0-131.0); Non-African American GFR(CKD) 95.2 (60.0-200.0); Potassium 3.9 mmol/L (3.5-5.5); Sodium 142 mmol/L (135-145); Total Protein 6.7 g/dL (6.2-8.2); VLDL Calculation 13.96 mg/dL (5.00-40.00)
== END | disposition home or self-care (01) ==
LOC: LABWHC1 08:12
PROVIDERS: ATTEND Internal Medicine
DX: Z00.00 Encounter for general adult medical examination without abnormal findings (principal); Z11.59 Encounter for screening for other viral diseases; E24.9 Cushing's syndrome, unspecified
CPT/HCPCS: 36415; 80053; 80061; 82533; 83735; 84443; 85025; 86803

== ENCOUNTER → 2023-03-08 | Outpatient (CLI) | payer MEDICAID ==
--- NOTE | 2023-03-09 08:21 | BD ---
EXAMINATION TYPE: Axial Bone Density DATE OF EXAM: 03/08/2023 CLINICAL HISTORY: 62 years old Female. ICD-10 CODE: Z13.820 SCREENING FOR OSTEOPOROSIS Height: 62 Weight: 142 FRAX RISK QUESTIONS: Alcohol (3 or more units per day): no Family History (Parent hip fracture): no Glucocorticoids (More than 3mos): no History of Fracture in Adulthood: no Secondary Osteoporosis: 1. Type 1 Diabetes: no 2. Hyperthyroidism: no 3. Menopause before 45: yes 4. Malnutrition: no 5. Chronic liver disease: no Rheumatoid Arthritis: no Current Tobacco Use: no RISK FACTORS HISTORY OF: Hip Fracture (Right/Left): no Spine Fracture: no History of Wrist Fracture: no When: no Surgery to Spine/Hip(right/left)/Wrist (right/left): no Family History of Osteoporosis: no Active: no Diet low in dairy products/other sources of calcium: yes Postmenopausal woman: yes Take estrogen and/or progesterone medications: no Lost more than 2 inches in height since high school: no Frequent falls: no Poor Health: no Hyperparathyroidism: no Adrenal Insufficiency: no MEDICATIONS: Prednisone or other steroids: no Thyroid Medications: no Osteoporosis Medications: no Additional Medications: BP Meds x2, Anxiety Meds, Potassium, Vit D, Fish Oil Additional History: EXAM MEASUREMENTS: Bone mineral densitometry was performed using the [employer] System. Bone mineral density as measured about the Lumbar spine is: ----- L1-L4(G/cm2): 0.983 T Score Values are as follows: ----- L1: -1.1 ----- L2: -2.1 ----- L3: -1.6 ----- L4: -1.8 ----- L1-L4: -1.6 Z Score Values are as follows: ----- L1: 0.2 ----- L2: -0.8 ----- L3: -0.3 ----- L4: -0.5 ----- L1-L4: -0.3 Baseline Study Bone mineral density about the R hip (g/cm2): 0.913 Bone mineral density about the L hip (g/cm2): 0.877 T Score values are as follows: -----R Neck: -1.5 -----L Neck: -1.7 -----R Total: -0.7 -----L Total: -1.0 Z Score values are as follows: -----R Neck: -0.2 -----L Neck: -0.4 -----R Total: 0.2 -----L Total: 0.0 Baseline Study FRAX%s: The graph provided illustrates a 9.0% chance for a major osteoporotic fx and a 0.9% chance fo r the hips probability for fx in 10 years time. IMPRESSION: Osteopenia (T Score between -2.5 and -1). There is slightly increased risk of fracture and the patient may be considered for treatment. Re-Screen 2-5 years. NOTE: T-SCORE=SD OF THE YOUNG ADULT MEAN.
--- NOTE | 2023-03-09 19:16 | MM ---
Reason for Exam: Screening (asymptomatic). Last mammogram was performed 1 year(s) and 3 month(s) ago. Patient History: Menarche at age 14. Patient has no children. Postmenopausal. Risk Values: Ayesha 5 year model risk: 1.6%. NCI Lifetime model risk: 7.9%. Prior Study Comparison: 03/02/2018 Bilateral Screening Mammogram, [facility]. 03/10/2019 Bilateral Screening Mammogram, [facility]. 12/08/2021 Bilateral Screening Mammogram, [facility]. Tissue Density: The breast tissue is heterogeneously dense. This may lower the sensitivity of mammography. Findings: Analyzed By CAD. There is no suspicious group of microcalcifications or new suspicious mass in either breast. Overall Assessment: Negative, BI-RAD 1 Management: Screening Mammogram of both breasts in 1 year. 1. Patient should continue monthly self breast exams. 2. A clinical breast exam by your physician is recommended on an annual basis. 3. This exam should not preclude additional follow-up of suspicious palpable abnormalities. Electronically signed and approved by: Patricia Arrieta M.D. Radiologist
== END | disposition home or self-care (01) ==
LOC: RADMAMWWP 15:42
PROVIDERS: ATTEND Internal Medicine
DX: Z12.31 Encounter for screening mammogram for malignant neoplasm of breast (principal); Z13.820 Encounter for screening for osteoporosis; M85.89 Other specified disorders of bone density and structure, multiple sites; Z78.0 Asymptomatic menopausal state
CPT/HCPCS: 77063; 77067; 77080

== ENCOUNTER 2023-06-12 12:17 | Emergency (ER) | payer MEDICAID ==
[2023-06-12] MEDS ORDERED: ONDANSETRON ODT 4 MG TAB PO STA (12:33)
[2023-06-12] MEDS ORDERED: IBUPROFEN 800 MG TAB PO STA (12:33)
--- NOTE | 2023-06-12 12:39 | ED ---
General Adult HPI - General Chief complaint: Fever Stated complaint: Fever Time Seen by Provider: 06/12/23 12:25 Source: patient, RN notes reviewed, old records reviewed Mode of arrival: ambulatory - History of Present Illness Initial comments: Patient is a 62-year-old female presents emergency department plenty of a fever. Is currently day 3 of fevers. Has been getting T-max of 102F at home. No significant symptoms other than intermittent mild nausea as well as generalized joint pain. No known sick contacts. Denies any congestion, cough, sore throat. Denies any diarrhea, constipation. Denies any dysuria or hematuria or abdominal pain. Denies any chest pain or shortness of breath. Unknown what is causing her fevers. Did not test herself or Covid. Presents for further evaluation at this time. States she has less of an appetite due to the intermittent nausea but is able to still eat and drink. Has no other significant past medical history other than hypertension. Presents for further evaluation. - Related Data Home Medications Medication Instructions Recorded Confirmed Aspirin EC [Ecotrin Low Dose] 81 mg PO HS 10/02/21 04/08/22 Losartan [Cozaar] 100 mg PO DAILY 01/30/22 04/08/22 Hydrochlorothiazide 12.5mg Tab 6.25 mg PO DAILY 04/08/22 04/08/22 Potassium Chloride [K-Tab ER] 10 meq PO HS 04/08/22 04/08/22 Sertraline [Zoloft] 25 mg PO DAILY PRN 04/08/22 04/08/22 amLODIPine [Norvasc] 2.5 mg PO HS 04/08/22 04/08/22 carvediloL [Coreg] 6.25 mg PO BID 04/08/22 04/08/22 Previous Rx's Medication Instructions Recorded Atorvastatin [Lipitor] 40 mg PO HS 30 Days #30 tablet 10/04/21 hydrOXYzine pamoate [Vistaril] 25 mg PO QID PRN #60 cap 04/09/22 Ondansetron Odt [Zofran Odt] 4 mg PO Q8HR PRN 3 Days #9 tab 06/12/23 Allergies Allergy/AdvReac Type Severity Reaction Status Date / Time adhesive tape Allergy Rash/Hives Verified 06/12/23 12:23 Review of Systems ROS Statement: Those systems with pertinent positive or pertinent negative responses have been documented in the HPI. Review of Systems: CONST: Endorses fever EYES: Denies blurry vision ENT: Denies nasal congestion C/V: Denies Chest pain RESP: Denies shortness of breath GI: Denies abdominal pain : Denies dysuria SKIN: Denies rash. MSK: Endorses body aches NEURO: Denies headache ROS Other: All systems not noted in ROS Statement are negative. Past Medical History Past Medical History: GERD/Reflux, Hypertension History of Any Multi-Drug Resistant Organisms: None Reported Past Surgical History: Appendectomy Additional Past Surgical History / Comment(s): COLONOSCOPY ovaries removed Past Anesthesia/Blood Transfusion Reactions: No Reported Reaction Past Psychological History: No Psychological Hx Reported Smoking Status: Never smoker Past Alcohol Use History: Occasional Past Drug Use History: None Reported - Past Family History Father Family Medical History: Cancer General Exam - General Exam Comments Initial Comments: General: Appears in no acute distress. Borderline fever of 100F. Generally well-appearing. Nontoxic-appearing. HEAD: Normal with no signs of head trauma. EYES: PERRLA, EOMI, conjunctiva normal, no discharge. ENT: Hearing grossly intact, normal oropharynx. No evidence of erythematous oropharynx. No exudates on tonsils. RESPIRATORY: Clear breath sounds bilaterally. No wheezes, rales, or rhonchi. C/V: Regular rate and rhythm. S1 and S2 auscultated, peripheral pulses 2+ and intact throughout ABD: Abd is soft, nontender, nondistended EXT: Normal range of motion, no obvious deformity SKIN: No rashes or lesions observed on exposed skin. NEURO: Alert and oriented 4. Course Vital Signs 06/12/23 12:20 Temperature 100.0 F H Pulse Rate 70 Respiratory 18 Rate Blood Pressure 114/75 O2 Sat by Pulse 96 Oximetry Medical Decision Making - Medical Decision Making Was pt. sent in by a medical professional or institution (, PA, CYCLE DIRECTOR, urgent care, hospital, or skilled nursing...) When possible be specific @ -No Did you speak to anyone other than the patient for history (EMS, parent, family, police, friend...)? What history was obtained from this source @ -No Did you review nursing and triage notes (agree or disagree)? Why? @ -I reviewed and agree with nursing and triage notes Were old charts reviewed (outside hosp., previous admission, EMS record, old EKG, old radiological studies, urgent care reports/EKG's, skilled nursing records)? Report findings @ -No old charts were reviewed Differential Diagnosis (chest pain, altered mental status, abdominal pain women, abdominal pain men, vaginal bleeding, weakness, fever, dyspnea, syncope, headache, dizziness, GI bleed, back pain, seizure, CVA, palpatations, mental health, musculoskeletal)? @ -Viral syndrome, strep pharyngitis, COVID-19 infection, influenza infection. This list is not all-inclusive. EKG interpreted by me (3pts min.). @ -None done X-rays interpreted by me (1pt min.). @ -None done CT interpreted by me (1pt min.). @ -None done U/S interpreted by me (1pt. min.). @ -None done What testing was considered but not performed or refused? (CT, X-rays, U/S, labs)? Why? @ -I considered x-ray, blood work, urinalysis. However patient is well- appearing. Nontoxic-appearing. No obvious symptoms other than the mild nausea as well as body aches. I did offer blood work as well as urine studies. However after discussing with the patient, this in addition to the chest x-ray were deferred for this time. She was in agreement with the viral swabs. She has no symptoms of urinary process or pneumonia. What meds were considered but not given or refused? Why? @ -None Did you discuss the management of the patient with other professionals (professionals i.e. , PA, CYCLE DIRECTOR, lab, RT, psych nurse, social media coordinator, cook enchilada, teacher, county health officer, high risk case manager)? Give summary @ -No Was smoking cessation discussed for >3mins.? @ -No Was critical care preformed (if so, how long)? @ -No Were there social determinants of health that impacted care today? How? (Homelessness, low income, unemployed, alcoholism, drug addiction, transportation, low edu. Level, literacy, decrease access to med. care, [facility], rehab)? @ -No Was there de-escalation of care discussed even if they declined (Discuss DNR or withdrawal of care, Hospice)? DNR status @ -No What co-morbidities impacted this encounter? (DM, HTN, Smoking, COPD, CAD, Cancer, CVA, ARF, Chemo, Hep., AIDS, mental health diagnosis, sleep apnea, morbid obesity)? @ -None Was patient admitted / discharged? Hospital course, mention meds given and route, prescriptions, significant lab abnormalities, going to OR and other pertinent info. @ -Based on the patient's presentation and physical exam, she is nontoxic appearing with a low-grade fever. Has been ongoing for a few days. No obvious signs of infection at this time. She has body aches. We will obtain viral swabs as well as strep throat swab. I did offer chest x-ray, urine studies as well as general labs however after discussion with the patient we both agree with a joint decision that these are not required at this time as she is well- appearing otherwise. Vital signs are within acceptable limits other than the low-grade fever. She'll receive a dose of Motrin as well as a few Zofran we will obtain the swabs. Patient was in agreement with this plan. Patient's viral swabs are negative. Strep throat swab is negative. Discussed results with the patient. Patient will be discharged, this time with strict return precautions including worsening symptoms.Return for further workup if needed. She was in agreement with this plan. She'll contact her PCP on Wednesday in follow-up. Discussed symptomatic therapy including good hydration, antipyretic therapy. Strict return precautions were discussed. I will provide the patient with a prescription for Zofran. I instructed the patient to follow up with their PCP in the next 1-3 days. I explained that the patient should return to the emergency department if they experience any worsening symptoms. Strict return precautions were discussed with the patient. The patient expressed understanding of these instructions. I answered all questions that the patient had. The patient was discharged home in good condition with their prescriptions and follow up information. Undiagnosed new problem with uncertain prognosis? @ -No Drug Therapy requiring intensive monitoring for toxicity (Heparin, Nitro, Insulin, Cardizem)? @ -No Were any procedures done? @ -No Diagnosis/symptom? @ -Fever, viral syndrome Acute, or Chronic, or Acute on Chronic? @ -Acute Uncomplicated (without systemic symptoms) or Complicated (systemic symptoms)? @ -Uncomplicated Side effects of treatment? @ -none Exacerbation, Progression, or Severe Exacerbation] @ -no Poses a threat to life or bodily function? @ -no - Lab Data Lab Results 06/12/23 06/12/23 Range/Units 12:44 12:44 Influenza Type A (PCR) Not Detected (Not Detectd) Influenza Type B (PCR) Not Detected (Not Detectd) RSV (PCR) Not Detected (Not Detectd) SARS-CoV-2 (PCR) Not Detected (Not Detectd) Group A Strep (PCR) NOT DETECTED (Not Detectd) Disposition Clinical Impression: Febrile illness, acute, Viral syndrome Disposition: HOME SELF-CARE Condition: Good Instructions (If sedation given, give patient instructions): Fever in Adults (ED) Prescriptions: Ondansetron Odt [Zofran Odt] 4 mg PO Q8HR PRN 3 Days #9 tab PRN Reason: Nausea Is patient prescribed a controlled substance at d/c from ED?: No Referrals: Adair Silva MD [Primary Care Provider] - 1-2 days Time of Disposition: 14:15
[2023-06-12 14:31] VITALS: BP 108/65; PULSE 66; RESP 16; TEMP 99.3
== END 2023-06-12 14:31 | disposition home or self-care (01) ==
LOC: SUPCPDRO 12:17 → EC 12:17
DX: B34.9 Viral infection, unspecified (principal); I10 Essential (primary) hypertension; Z79.82 Long term (current) use of aspirin; Z79.899 Other long term (current) drug therapy; Z88.8 Allergy status to other drugs, medicaments and biological substances; Z20.822 Contact with and (suspected) exposure to COVID-19
CPT/HCPCS: 87636; 87651; 99283

== ENCOUNTER → 2023-06-16 | Outpatient (CLI) | payer MEDICAID ==
--- NOTE | 2023-06-16 15:52 | XR ---
EXAMINATION TYPE: XR chest 2V DATE OF EXAM: 06/16/2023 COMPARISON: 04/08/2022 TECHNIQUE: PA and lateral views submitted. HISTORY: Cough FINDINGS: The lungs are clear and there is no pneumothorax, pleural effusion, or focal pneumonia. Heart size normal and no overt failure. Osseous structures demonstrate hypertrophic and degenerative changes of the spine. Hyperinflation. IMPRESSION: 1. No acute process. Correlate for COPD.
== END | disposition home or self-care (01) ==
LOC: RADXRMAIN 15:07
PROVIDERS: ATTEND Internal Medicine
DX: J06.9 Acute upper respiratory infection, unspecified (principal); R05.9 Cough, unspecified
CPT/HCPCS: 71046

== ENCOUNTER → 2023-06-19 | Outpatient (CLI) | payer MEDICAID ==
[2023-06-19 13:32] LABS: % Iron Saturation 23.12 (12.00-45.00); ALT 200 U/L (8-44); AST 65 U/L (13-35); Albumin 4.4 d/dL (3.8-4.9); Albumin/Globulin Ratio 1.42 Ratio (1.60-3.17); Alkaline Phosphatase 126 U/L (41-126); BUN/Creat Ratio 12.75 Ratio (12.00-20.00); Bilirubin, Conjugated <0.20 mg/dL (0.20-0.40); Bilirubin,Unconjugated >0.30 mg/dL (0.20-1.00); Blood Urea Nitrogen 10.2 mg/dL (9.0-27.0); Calcium 9.9 mg/dL (8.7-10.3); Carbon Dioxide 26.1 mmol/L (21.6-31.8); Chloride 101 mmol/L (96-109); Chol/HDL Ratio 3.55 Ratio; Globulin 3.1 d/dL (1.6-3.3); Glucose 107 mg/dL (70-110); Iron 86 UG/DL (50-170); LDL Cholesterol,Calculated 83.8 mg/dL (0.0-131.0); Potassium 4.3 mmol/L (3.5-5.5); Sodium 138 mmol/L (135-145); Total Bilirubin 0.5 mg/dL (0.3-1.2); Total Iron Binding Capacity 372 UG/DL (228-460); Total Protein 7.5 d/dL (6.2-8.2); VLDL Calculation 17.52 mg/dL (5.00-40.00)
[2023-06-19 13:38] LABS: Hepatitis A Antibody IgM Nonreactive; Hepatitis B Core IgM Nonreactive; Hepatitis B Surface Antigen Nonreactive; Hepatitis C IgG Antibody Nonreactive
[2023-06-19 13:57] LABS: Ceruloplasmin 37.1 mg/dL (20.0-60.0)
== END | disposition home or self-care (01) ==
LOC: LABWHC1 08:08
PROVIDERS: ATTEND Internal Medicine
DX: R74.01 Elevation of levels of liver transaminase levels (principal)
CPT/HCPCS: 36415; 80053; 80061; 80074; 82103; 82248; 82390; 82525; 82728; 83516; 83540; 83550; 86038

== ENCOUNTER → 2023-07-09 | Outpatient (CLI) | payer MEDICAID ==
--- NOTE | 2023-07-09 09:20 | US ---
EXAMINATION TYPE: US liver DATE OF EXAM: 07/09/2023 COMPARISON: 04/28/2022 CLINICAL INDICATION: Female, 62 years old with history of R74.01 ELEV LEVELS OF LIVER TRANSAMINASE LE VELS; TECHNIQUE: Multiple sonographic images of the right upper quadrant are obtained. FINDINGS: EXAM MEASUREMENTS: Liver Length: 16.1 cm Gallbladder Wall: 0.2 cm CBD: 0.4 cm Right Kidney: 9.7 x 3.9 x 5.4 cm Pancreas: visualized portions wnl, limited by overlying midline bowel gas Liver: No evidence for mass or organizing fluid collection. No ductal dilation. No cystic structures. Gallbladder: wnl Evidence for sonographic Martinez's sign: no CBD: visualized portions wnl, limited by overlying bowel gas Right Kidney: wnl IMPRESSION: No evidence for acute process.
== END | disposition home or self-care (01) ==
LOC: RADUSWWP 07:40
PROVIDERS: ATTEND Internal Medicine
DX: R74.01 Elevation of levels of liver transaminase levels (principal)
CPT/HCPCS: 76705

== ENCOUNTER → 2023-07-17 | Outpatient (CLI) | payer MEDICAID ==
[2023-07-17 13:44] LABS: Basophils # (A) 0.04 X 10*3/uL (0.00-0.10); Basophils % (A) 0.6 %; Eosinophils # (A) 0.18 X 10*3/uL (0.04-0.35); Eosinophils % (A) 2.5 %; HCT 37.1 % (37.2-46.3); HGB 11.8 d/dL (12.0-15.0); Lymphocytes # (A) 1.98 X 10*3/uL (0.90-5.00); Lymphocytes % (A) 27.7 %; MCHC 31.8 d/dL (32.0-37.0); MCV 94.4 FL (80.0-97.0); Mean Platelet Volume 10.6 FL (9.5-12.2); Monocytes # (A) 0.44 X 10*3/uL (0.20-1.00); Monocytes % (A) 6.2 %; NRBC Per 100 WBC 0 X 10*3/uL (0.00-0.01); Neutrophils # (A) 4.48 X 10*3/uL (1.80-7.70); Neutrophils % (A) 62.7 %; Platelet Count 248 X 10*3/uL (140-440); RBC 3.93 X 10*6/uL (4.10-5.20); RDW 12.5 % (11.5-14.5); WBC 7.14 X 10*3/uL (4.50-10.00)
[2023-07-17 13:55] LABS: Albumin 4.1 d/dL (3.8-4.9); Albumin/Globulin Ratio 1.41 Ratio (1.60-3.17); Globulin 2.9 d/dL (1.6-3.3)
[2023-07-17 13:56] LABS: ALT 33 U/L (8-44); AST 27 U/L (13-35); Alkaline Phosphatase 65 U/L (41-126); BUN/Creat Ratio 18.14 Ratio (12.00-20.00); Blood Urea Nitrogen 12.7 mg/dL (9.0-27.0); Calcium 9.6 mg/dL (8.7-10.3); Carbon Dioxide 27.4 mmol/L (21.6-31.8); Chloride 104 mmol/L (96-109); Glucose 91 mg/dL (70-110); Potassium 4.5 mmol/L (3.5-5.5); Sodium 141 mmol/L (135-145); Total Bilirubin 0.3 mg/dL (0.3-1.2)
[2023-07-21 18:07] LABS: Gamma Globulin 1.29 d/dL (0.70-1.50)
== END | disposition home or self-care (01) ==
LOC: LABWHC1 07:55
PROVIDERS: ATTEND Internal Medicine Gastroenterology
DX: R74.01 Elevation of levels of liver transaminase levels (principal)
CPT/HCPCS: 36415; 80053; 84165; 85025

== ENCOUNTER → 2024-01-15 | Outpatient (CLI) | payer MEDICAID ==
[2024-01-15 13:25] LABS: Basophils # (A) 0.03 X 10*3/uL (0.00-0.10); Basophils % (A) 0.5 %; Eosinophils # (A) 0.13 X 10*3/uL (0.04-0.35); HCT 36.6 % (37.2-46.3); HGB 12.1 g/dL (12.0-15.0); Lymphocytes % (A) 37.7 %; MCH 30.4 pg (27.0-32.0); MCHC 33.1 g/dL (32.0-37.0); Mean Platelet Volume 9.4 FL (9.5-12.2); Monocytes # (A) 0.48 X 10*3/uL (0.20-1.00); Monocytes % (A) 7.2 %; NRBC Per 100 WBC 0 X 10*3/uL (0.00-0.01); Neutrophils # (A) 3.48 X 10*3/uL (1.80-7.70); Neutrophils % (A) 52.3 %; Platelet Count 277 X 10*3/uL (140-440); RBC 3.98 X 10*6/uL (4.10-5.20); RDW 12.5 % (11.5-14.5); WBC 6.64 X 10*3/uL (4.50-10.00)
[2024-01-15 13:37] LABS: % Iron Saturation 25.54 (12.00-45.00); ALT 17 U/L (8-44); AST 23 U/L (13-35); Albumin 4.2 g/dL (3.8-4.9); Albumin/Globulin Ratio 1.45 Ratio (1.60-3.17); Alkaline Phosphatase 56 U/L (41-126); Blood Urea Nitrogen 15.2 mg/dL (9.0-27.0); Calcium 9.4 mg/dL (8.7-10.3); Carbon Dioxide 26.1 mmol/L (21.6-31.8); Chloride 104 mmol/L (96-109); Globulin 2.9 g/dL (1.6-3.3); Glucose 89 mg/dL (70-110); Iron 94 UG/DL (50-170); Potassium 4.1 mmol/L (3.5-5.5); Sodium 140 mmol/L (135-145); Total Bilirubin 0.4 mg/dL (0.3-1.2); Total Iron Binding Capacity 368 UG/DL (228-460); Total Protein 7.1 g/dL (6.2-8.2)
== END | disposition home or self-care (01) ==
LOC: LABWHC1 08:01
PROVIDERS: ATTEND Internal Medicine Gastroenterology
DX: R74.01 Elevation of levels of liver transaminase levels (principal)
CPT/HCPCS: 36415; 80053; 82728; 83540; 83550; 85025

== ENCOUNTER → 2025-02-20 | Outpatient (CLI) | payer MEDICAID ==
--- NOTE | 2025-02-20 14:09 | MM ---
Reason for Exam: Screening (asymptomatic). Last mammogram was performed 2 year(s) and 0 month(s) ago. Patient History: Menarche at age 14. Patient has no children. Postmenopausal. Risk Values: Ayesha 5 year model risk: 1.7%. NCI Lifetime model risk: 7.4%. Prior Study Comparison: 03/10/2019 Bilateral Screening Mammogram, [facility]. 12/08/2021 Bilateral Screening Mammogram, [facility]. 03/08/2023 Bilateral MG 3D screening mammo w/cad, [facility]. Tissue Density: The breasts are heterogeneously dense, which may obscure small masses. Findings: Analyzed By CAD. There is no suspicious group of microcalcifications or new suspicious mass in either breast. Overall Assessment: Negative, BI-RAD 1 Management: Screening Mammogram of both breasts in 1 year. Patient should continue monthly self-breast exams. A clinical breast exam by your physician is recommended on an annual basis. This exam should not preclude additional follow-up of suspicious palpable abnormalities. Note on Ayesha scores and lifetime risk: 1. A Ayesha score greater than 3% is considered moderate risk. If this is the case, consider specialist referral to assess eligibility for a risk reducing agent. 2. If overall lifetime risk for the development of breast cancer is 20% or higher, the patient may qualify for future screening with alternating mammogram and breast MRI. [facility], , 02/20/2025 2:06 PM. Electronically signed and approved by: Patricia Arrieta M.D. Radiologist
== END | disposition home or self-care (01) ==
LOC: RADMAMWWP 09:49
PROVIDERS: ATTEND Internal Medicine
DX: Z12.31 Encounter for screening mammogram for malignant neoplasm of breast (principal); R92.333 Mammographic heterogeneous density, bilateral breasts; Z78.0 Asymptomatic menopausal state
CPT/HCPCS: 77063; 77067